=== PATIENT | female | born 1965 | race Caucasian/White ===

== ENCOUNTER 2020-03-26 11:14 | Outpatient (REF) | payer MEDICARE, MEDICAID, SELFPAY ==
[2020-03-26 12:09] LABS: MANUAL DIFF FLAG NO
[2020-03-26 12:16] LABS: Basophils Percent Auto 0.4 % (0-2); Eosinophils Absolute Auto 0.1 X10*3/uL (0.0-0.4); Eosinophils Percent Auto 0.8 % (0-4); Hematocrit 44.5 % (37-47); Imm Gran Abs Auto 0.03 X10*3/uL (0.00-0.03); Imm Gran Pct Auto 0.3 % (0.0-0.4); Lymphocytes Absolute Auto 2.3 X10*3/uL (1.2-4.9); Lymphocytes Percent Auto 20.1 % (20-40); Mean Corpuscular HGB Conc 31.5 g/dl (31.0-35.0); Mean Corpuscular Hemoglobin 27.2 pg (27.0-33.0); Mean Corpuscular Volume 86.6 fL (80-98); Monocytes Absolute Auto 0.6 X10*3/uL (0.1-1.2); Monocytes Percent Auto 5.2 % (2-11); Neutrophils Absolute Auto 8.2 X10*3/uL (2.0-8.3); Neutrophils Percent Auto 73.2 % (45-73); Platelet Count 246 X10*3/uL (160-400); Red Blood Count 5.14 X10*6/uL (4.20-5.50); Red Cell Distribution Width 15.8 % (11.0-16.0); White Blood Count 11.2 X10*3/uL (4.8-10.8)
[2020-03-26 13:05] LABS: Erythrocyte Sedimentation Rate 20 MM/HR (0-20)
[2020-03-26 13:37] LABS: Alanine Aminotransferase 25 U/L (0-31); Albumin Level 4.3 g/dL (3.5-5.0); Alkaline Phosphatase 90 U/L (39-117); Anion Gap 12 (12-20); Aspartate Amino Transferase 23 U/L (5-31); Bilirubin Total 0.4 mg/dL (0.0-1.0); Blood Urea Nitrogen 12 mg/dL (9-16); C Reactive Protein 3.18 mg/dL (< or = 0.50); Calcium 9.5 mg/dL (8.4-10.2); Carbon Dioxide 27 mmol/L (22-29); Chloride 105 mmol/L (96-108); Estimated Glomerular Filt Rate > 60; Glucose Random 84 mg/dL (60-115); Potassium 4.4 mmol/l (3.3-5.1); Sodium 140 mmol/L (135-145); Total Protein 7.1 g/dL (6.5-8.0)
== END 2020-03-26 11:15 | disposition home or self-care (01) ==
LOC: HO.LAB 11:14
PROVIDERS: PCP Internal Medicine; Visit Provider Student in an Organized Health Care Education/Training Program
DX: M13.80 Other specified arthritis, unspecified site (principal); D72.829 Elevated white blood cell count, unspecified; R79.82 Elevated C-reactive protein (CRP)
CPT/HCPCS: 36415; 80053; 85025; 85652; 86140

== ENCOUNTER → 2020-04-01 15:08 | Outpatient (BNVA) | payer MEDICARE, MEDICAID, SELFPAY | PROVIDERS: PCP Internal Medicine; Visit Provider Student in an Organized Health Care Education/Training Program | DX: M06.00 Rheumatoid arthritis without rheumatoid factor, unspecified site (principal); R79.82 Elevated C-reactive protein (CRP); D72.829 Elevated white blood cell count, unspecified; Z79.899 Other long term (current) drug therapy | CPT/HCPCS: 99214 ==

== ENCOUNTER 2020-07-03 10:19 | Outpatient (REF) | payer MEDICARE, MEDICAID, SELFPAY ==
[2020-07-03 11:48] LABS: MANUAL DIFF FLAG NO
[2020-07-03 11:59] LABS: Basophils Absolute Auto 0.1 X10*3/uL (0.0-0.2); Basophils Percent Auto 0.5 % (0-2); Eosinophils Absolute Auto 0.1 X10*3/uL (0.0-0.4); Hematocrit 46.2 % (37-47); Hemoglobin 14.3 g/dl (12.0-16.0); Imm Gran Abs Auto 0.03 X10*3/uL (0.00-0.03); Imm Gran Pct Auto 0.3 % (0.0-0.4); Lymphocytes Absolute Auto 2.1 X10*3/uL (1.2-4.9); Lymphocytes Percent Auto 20.3 % (20-40); Mean Corpuscular Hemoglobin 27.3 pg (27.0-33.0); Mean Corpuscular Volume 88.3 fL (80-98); Monocytes Absolute Auto 0.6 X10*3/uL (0.1-1.2); Monocytes Percent Auto 5.7 % (2-11); Neutrophils Absolute Auto 7.4 X10*3/uL (2.0-8.3); Neutrophils Percent Auto 72.2 % (45-73); Platelet Count 223 X10*3/uL (160-400); Red Blood Count 5.23 X10*6/uL (4.20-5.50); Red Cell Distribution Width 14.8 % (11.0-16.0); White Blood Count 10.3 X10*3/uL (4.8-10.8)
[2020-07-03 12:25] LABS: Alanine Aminotransferase 15 U/L (0-31); Albumin Level 4.3 g/dL (3.5-5.0); Alkaline Phosphatase 97 U/L (39-117); Anion Gap 17 (12-20); Aspartate Amino Transferase 20 U/L (5-31); Bilirubin Total 0.5 mg/dL (0.0-1.0); Blood Urea Nitrogen 10 mg/dL (9-16); C Reactive Protein 3.54 mg/dL (< or = 0.50); Calcium 9.4 mg/dL (8.4-10.2); Carbon Dioxide 26 mmol/L (22-29); Chloride 105 mmol/L (96-108); Estimated Glomerular Filt Rate > 60; Glucose Random 75 mg/dL (60-115); Magnesium 2.1 mg/dL (1.6-2.6); Potassium 4.8 mmol/l (3.3-5.1); Sodium 143 mmol/L (135-145); Total Protein 7.3 g/dL (6.5-8.0)
[2020-07-03 12:57] LABS: Erythrocyte Sedimentation Rate 22 MM/HR (0-20)
== END 2020-07-03 10:20 | disposition home or self-care (01) ==
LOC: HO.LAB 10:19
PROVIDERS: PCP Internal Medicine; Visit Provider Student in an Organized Health Care Education/Training Program
DX: M13.80 Other specified arthritis, unspecified site (principal); D72.829 Elevated white blood cell count, unspecified
CPT/HCPCS: 36415; 80053; 83735; 85025; 85652; 86140

== ENCOUNTER → 2020-07-08 08:05 | Outpatient (BNVA) | payer MEDICARE, MEDICAID, SELFPAY | PROVIDERS: PCP Internal Medicine; Visit Provider Student in an Organized Health Care Education/Training Program | DX: Z13.89 Encounter for screening for other disorder (principal) | CPT/HCPCS: Q3014 ==

== ENCOUNTER 2020-10-14 10:19 | Outpatient (REF) | payer MEDICARE, MEDICAID, SELFPAY ==
[2020-10-14 11:16] LABS: MANUAL DIFF FLAG NO
[2020-10-14 11:34] LABS: Basophils Percent Auto 0.4 % (0-2); Eosinophils Absolute Auto 0.1 X10*3/uL (0.0-0.4); Eosinophils Percent Auto 1.2 % (0-4); Hematocrit 45.2 % (37-47); Imm Gran Abs Auto 0.06 X10*3/uL (0.00-0.03); Imm Gran Pct Auto 0.6 % (0.0-0.4); Lymphocytes Absolute Auto 2.2 X10*3/uL (1.2-4.9); Mean Corpuscular Hemoglobin 26.8 pg (27.0-33.0); Mean Corpuscular Volume 86.6 fL (80-98); Mean Platelet Volume 12.5 fL (9.4-12.3); Monocytes Absolute Auto 0.6 X10*3/uL (0.1-1.2); Monocytes Percent Auto 5.8 % (2-11); Neutrophils Absolute Auto 7.1 X10*3/uL (2.0-8.3); Platelet Count 208 X10*3/uL (160-400); Red Blood Count 5.22 X10*6/uL (4.20-5.50); Red Cell Distribution Width 14.3 % (11.0-16.0); White Blood Count 10.1 X10*3/uL (4.8-10.8)
[2020-10-14 11:51] LABS: Alanine Aminotransferase 15 U/L (0-31); Albumin Level 4.1 g/dL (3.5-5.0); Alkaline Phosphatase 90 U/L (39-117); Anion Gap 14 (12-20); Aspartate Amino Transferase 19 U/L (5-31); Bilirubin Total 0.6 mg/dL (0.0-1.0); Blood Urea Nitrogen 13 mg/dL (9-16); C Reactive Protein 2.42 mg/dL (< or = 0.50); Calcium 9.6 mg/dL (8.4-10.2); Carbon Dioxide 27 mmol/L (22-29); Chloride 105 mmol/L (96-108); Estimated Glomerular Filt Rate > 60; Glucose Random 82 mg/dL (60-115); Potassium 4.5 mmol/L (3.3-5.1); Sodium 141 mmol/L (135-145); Total Protein 7.1 g/dL (6.5-8.0)
[2020-10-14 12:10] LABS: Erythrocyte Sedimentation Rate 17 MM/HR (0-20)
[2020-10-14 12:22] LABS: Cholesterol 173 mg/dL; HDL Cholesterol 47 mg/dL; LDL Cholesterol Calculated 95 mg/dl; Triglycerides 156 mg/dL
[2020-10-14 12:35] LABS: TSH reflex Free T4 1.23 uIU/mL (0.32-4.0)
[2020-10-15 05:26] LABS: HBS Num1 0.39 mIU/mL (0-7.99); HBc Num1 0.05 S/CO (0.00-0.79); Hepatitis B Core Antibody Nonreactive (Nonreactive); ~HepC Num1 0.06 S/CO (0.00-0.79); ~Hepatitis B Surface Antibody NONREACTIVE (Nonreactive); ~Hepatitis C Antibody Nonreactive (Nonreactive)
[2020-10-15 05:40] LABS: HBsAGNum1 0.17 S/CO (0.00-0.99); Hepatitis B Surface Antigen Negative (Negative)
[2020-10-16 05:03] LABS: Hepatitis A Antibody IgM 0.16 Index (0-0.79); ~Hepatitis A Antibody IgM Nonreactive (Nonreactive)
[2020-10-16 20:36] LABS: TS Negative Control Passed; TS Panel A 1; TS Panel B 0; TS Positive Control Passed; TSpotTB Negative (SeeBelow)
== END 2020-10-14 10:20 | disposition home or self-care (01) ==
LOC: HO.LAB 10:19
PROVIDERS: PCP Internal Medicine; Visit Provider Student in an Organized Health Care Education/Training Program
DX: Z00.00 Encounter for general adult medical examination without abnormal findings (principal); M13.80 Other specified arthritis, unspecified site
CPT/HCPCS: 36415; 80053; 80061; 84443; 85025; 85652; 86140; 86481; 86704; 86706; 86709; 86803; 87340

== ENCOUNTER → 2020-10-22 08:01 | Outpatient (BNVA) | payer MEDICARE, MEDICAID, SELFPAY | PROVIDERS: Visit Provider Student in an Organized Health Care Education/Training Program | DX: M13.80 Other specified arthritis, unspecified site (principal); R79.82 Elevated C-reactive protein (CRP); D72.829 Elevated white blood cell count, unspecified; Z79.899 Other long term (current) drug therapy | CPT/HCPCS: 99212 ==

== ENCOUNTER 2021-06-07 07:53 | Outpatient (REF) | payer MEDICARE, MEDICAID, SELFPAY ==
[2021-06-07 11:43] LABS: MANUAL DIFF FLAG NO
[2021-06-07 11:55] LABS: Basophils Percent Auto 0.3 % (0-2); Eosinophils Absolute Auto 0.2 X10*3/uL (0.0-0.4); Eosinophils Percent Auto 1.4 % (0-4); Hemoglobin 13.9 g/dl (12.0-16.0); Imm Gran Abs Auto 0.05 X10*3/uL (0.00-0.03); Imm Gran Pct Auto 0.4 % (0.0-0.4); Lymphocytes Absolute Auto 2.3 X10*3/uL (1.2-4.9); Lymphocytes Percent Auto 19.8 % (20-40); Mean Corpuscular HGB Conc 30.9 g/dl (31.0-35.0); Mean Corpuscular Hemoglobin 26.9 pg (27.0-33.0); Mean Corpuscular Volume 87.2 fL (80.0-98.0); Monocytes Absolute Auto 0.7 X10*3/uL (0.1-1.2); Monocytes Percent Auto 6.4 % (2-11); Neutrophils Absolute Auto 8.3 x10*3/uL (2.0-8.3); Neutrophils Percent Auto 71.7 % (45-73); Platelet Count 209 X10*3/uL (160-400); Red Blood Count 5.16 X10*6/uL (4.20-5.50); Red Cell Distribution Width 15.4 % (11.0-16.0); White Blood Count 11.6 X10*3/uL (4.8-10.8)
== END 2021-06-07 07:54 | disposition home or self-care (01) ==
LOC: HO.HMGCLDS 07:53
PROVIDERS: PCP Internal Medicine; Visit Provider Internal Medicine
DX: Z00.00 Encounter for general adult medical examination without abnormal findings (principal)
CPT/HCPCS: 36415; 85025; 85027

== ENCOUNTER 2021-06-22 10:15 | Outpatient (REF) | payer MEDICARE, MEDICAID, SELFPAY ==
--- NOTE | ~2021-06-22 | MR_ITS ---
EXAMINATION: MR LUMBAR SPINE WITHOUT CONTRAST CLINICAL INFORMATION: Right leg radiculopathy and low back pain. COMPARISON: MRI dated 08/23/2019. TECHNIQUE: MRI of the lumbar spine was obtained using routine sequences without contrast. FINDINGS: VERTEBRAL BODIES AND PARASPINAL STRUCTURES: The marrow signal is within normal limits. Small endplate Schmorl's nodes again visible at multiple levels. There are mild anterior subluxations at the L3-L4 and L4-L5 level. The paraspinal soft tissues are unremarkable. Mild rightward curvature of the lumbar spine evident. The visualized bony pelvis appears normal. Sigmoid colonic diverticulosis partially seen. CONUS MEDULLARIS AND CAUDA EQUINA: Normal, terminating at the level of L1. No lower cord signal abnormality seen. The cauda equina nerve roots are normal. SPINAL LEVELS: L1-L2: No disc pathology, central canal stenosis, or foraminal narrowing. L2-L3: Mild disc bulge and facet arthropathy slightly encroaching upon the central canal. Broad-based right lateralized disc bulge/protrusion with mild encroachment contacting the extraforaminal right L2 nerve root, as on prior imaging. L3-L4: Diffuse disc bulge and moderate facet arthropathy with thickening of the ligamentum flavum resulting in slightly worsened zrnf-jq-mjbivkrp central canal stenosis with encroachment upon the left subarticular zone and mild mass effect upon the left L4 nerve root. Bulging disc result in mild bilateral foraminal encroachment. L4-L5: Anterior subluxation and zdbonukr-gm-bzdwok facet arthropathy with thickening of the ligamentum flavum contributing to gygi-sd-corbctek central canal stenosis and asymmetric narrowing of the left subarticular zone with mass effect upon the left L5 nerve root. Bulging disc with mild right foraminal encroachment. Left foraminal broad-based disc protrusion and underlying annular fissure with moderate encroachment, slightly worsened compared to prior imaging. The disc protrusion abuts the extraforaminal left L4 nerve root. L5-S1: Qbfr-xo-tlvizcji facet arthropathy, worse on the right side with a minimal annular bulge. No central canal stenosis. Mild right foraminal narrowing. Endplate spurring impresses upon the extraforaminal right L5 nerve root without change. MR/MR lumbar spine wo con IMPRESSION: Slight worsening of zhcy-za-qogatiqv central canal stenosis at the L3-L4 level with mild mass effect upon the left L4 nerve root in the subarticular zone. Ycig-yr-bjzlpywa central canal stenosis is relatively stable at the L4-L5 level with a mild anterolisthesis and cdplnhmw-ch-rahkhd facet arthropathy. Slight worsening of moderate left foraminal encroachment due to a broad-based left foraminal disc protrusion with an underlying annular fissure. Lateralized portion of the disc protrusion abuts the extraforaminal left L4 nerve root. Chronic compression of the left L5 nerve root in the narrowed left subarticular zone. Broad-based right lateral disc bulge/protrusion at L2-L3 continues to contact the extraforaminal right L2 nerve root. Endplate spurring chronically impresses upon the extraforaminal right L5 nerve root at the L5-S1 level.
== END 2021-06-22 10:16 | disposition home or self-care (01) ==
LOC: HO.MRI 10:15
PROVIDERS: PCP Internal Medicine; Visit Provider Internal Medicine
DX: M54.16 Radiculopathy, lumbar region (principal)
CPT/HCPCS: 72148

== ENCOUNTER 2022-06-30 07:25 | Outpatient (REF) | payer MEDICARE, MEDICAID, SELFPAY ==
[2022-06-30 11:21] LABS: MANUAL DIFF FLAG NO
[2022-06-30 11:38] LABS: Basophils Absolute Auto 0.1 X10*3/uL (0.0-0.2); Basophils Percent Auto 0.5 % (0-2); Eosinophils Absolute Auto 0.2 X10*3/uL (0.0-0.4); Eosinophils Percent Auto 1.5 % (0-4); Hematocrit 46.4 % (37.0-47.0); Hemoglobin 14.3 g/dl (12.0-16.0); Imm Gran Abs Auto 0.04 X10*3/uL (0.00-0.03); Imm Gran Pct Auto 0.4 % (0.0-0.4); Lymphocytes Absolute Auto 2.1 X10*3/uL (1.2-4.9); Lymphocytes Percent Auto 19.8 % (20-40); Mean Corpuscular HGB Conc 30.8 g/dl (31.0-35.0); Mean Corpuscular Hemoglobin 26.7 pg (27.0-33.0); Mean Corpuscular Volume 86.6 fL (80.0-98.0); Mean Platelet Volume 12.8 fL (9.4-12.3); Monocytes Absolute Auto 0.6 X10*3/uL (0.1-1.2); Neutrophils Absolute Auto 7.5 x10*3/uL (2.0-8.3); Neutrophils Percent Auto 71.8 % (45-73); Platelet Count 256 X10*3/uL (160-400); Red Blood Count 5.36 X10*6/uL (4.20-5.50); Red Cell Distribution Width 14.5 % (11.0-16.0); White Blood Count 10.5 X10*3/uL (4.8-10.8)
[2022-06-30 12:16] LABS: Alanine Aminotransferase 13 U/L (0-31); Albumin Level 4.2 g/dL (3.5-5.0); Alkaline Phosphatase 81 U/L (39-117); Anion Gap 14 (12-20); Aspartate Amino Transferase 18 U/L (5-31); Bilirubin Total 0.5 mg/dL (0.0-1.0); Blood Urea Nitrogen 17 mg/dL (9-16); Calcium 9.3 mg/dL (8.4-10.2); Carbon Dioxide 25 mmol/L (22-29); Chloride 106 mmol/L (96-108); Cholesterol 185 mg/dL; Estimated Glomerular Filt Rate > 60; Glucose Fasting 87 mg/dL (60-99); HDL Cholesterol 52 mg/dL; LDL Cholesterol Calculated 114 mg/dl; Potassium 4.2 mmol/L (3.3-5.1); Sodium 141 mmol/L (135-145); Total Protein 7.3 g/dL (6.5-8.0); Triglycerides 95 mg/dL
[2022-06-30 12:18] LABS: TSH reflex Free T4 2.09 uIU/mL (0.32-4.0)
== END 2022-06-30 07:26 | disposition home or self-care (01) ==
LOC: HO.HMGCLDS 07:25
PROVIDERS: PCP Internal Medicine; Visit Provider Internal Medicine
DX: Z00.00 Encounter for general adult medical examination without abnormal findings (principal); E66.3 Overweight
CPT/HCPCS: 36415; 80053; 80061; 84443; 85025

== ENCOUNTER 2022-10-05 10:43 | Outpatient (REF) | payer MEDICARE, MEDICAID, SELFPAY ==
[2022-10-05 11:43] LABS: MANUAL DIFF FLAG NO
[2022-10-05 11:50] LABS: Basophils Absolute Auto 0.1 X10*3/uL (0.0-0.2); Basophils Percent Auto 0.6 % (0-2); Eosinophils Absolute Auto 0.1 X10*3/uL (0.0-0.4); Eosinophils Percent Auto 0.6 % (0-4); Hematocrit 45.7 % (37.0-47.0); Hemoglobin 14.2 g/dl (12.0-16.0); Imm Gran Abs Auto 0.03 X10*3/uL (0.00-0.03); Imm Gran Pct Auto 0.3 % (0.0-0.4); Lymphocytes Percent Auto 19.4 % (20-40); Mean Corpuscular HGB Conc 31.1 g/dl (31.0-35.0); Mean Corpuscular Hemoglobin 26.5 pg (27.0-33.0); Mean Corpuscular Volume 85.4 fL (80.0-98.0); Mean Platelet Volume 12.2 fL (9.4-12.3); Monocytes Absolute Auto 0.6 X10*3/uL (0.1-1.2); Monocytes Percent Auto 5.6 % (2-11); Neutrophils Absolute Auto 7.7 x10*3/uL (2.0-8.3); Neutrophils Percent Auto 73.5 % (45-73); Platelet Count 246 X10*3/uL (160-400); Red Blood Count 5.35 X10*6/uL (4.20-5.50); Red Cell Distribution Width 14.7 % (11.0-16.0); White Blood Count 10.4 X10*3/uL (4.8-10.8)
[2022-10-05 12:10] LABS: C Reactive Protein 2.88 mg/dL (< or = 0.50)
[2022-10-05 12:52] LABS: Erythrocyte Sedimentation Rate 33 MM/HR (0-20)
== END 2022-10-05 10:44 | disposition home or self-care (01) ==
LOC: HO.HMGCLDS 10:43
PROVIDERS: PCP Internal Medicine; Visit Provider Internal Medicine
DX: M48.062 Spinal stenosis, lumbar region with neurogenic claudication (principal)
CPT/HCPCS: 36415; 85025; 85652; 86140

== ENCOUNTER → 2022-10-26 14:40 | Outpatient (BNVA) | payer MEDICARE, MEDICAID, SELFPAY | PROVIDERS: PCP Internal Medicine; Visit Provider Student in an Organized Health Care Education/Training Program | DX: M13.80 Other specified arthritis, unspecified site (principal) | CPT/HCPCS: 99212 ==

== ENCOUNTER 2022-11-01 09:11 | Outpatient (REF) | payer MEDICARE, MEDICAID, SELFPAY ==
--- NOTE | ~2022-11-01 | XR_ITS ---
EXAMINATION: Bilateral hand and wrist x-ray CLINICAL INFORMATION: Pain COMPARISON: None. TECHNIQUE: 4 views of both hands and wrists FINDINGS: Right: Bone alignment is normal. No fracture or dislocation. Mild arthritis at the first NURSING HOME joint with joint space narrowing and osteophyte formation. Joint spaces are otherwise normal. Soft tissues are normal. Left: Bone alignment is normal. No fracture or dislocation. Mild arthritis at the first NURSING HOME joint with joint space narrowing and osteophyte formation. Joint spaces are otherwise normal. Soft tissues are normal. XR/XR hand wrist RT IMPRESSION: Bilateral osteoarthritis at the first NURSING HOME joints.
--- NOTE | ~2022-11-01 | XR_ITS ---
EXAMINATION: Bilateral knee x-ray CLINICAL INFORMATION: Arthritis. Pain. COMPARISON: None. TECHNIQUE: 4 views of each knee FINDINGS: Right: Bone alignment is normal. No fracture or dislocation. Mild arthritis at the medial femoral tibial and patellofemoral joints. Small osteophyte at the quadriceps tendon insertion to the patella. Moderate joint effusion. Left: Bone alignment is normal. No fracture or dislocation. Mild arthritis at the medial femoral tibial and patellofemoral joints. Small osteophyte at the quadriceps tendon insertion to the patella. No joint effusion. XR/XR knee RT 3V IMPRESSION: Mild bilateral osteoarthritis. Right knee joint effusion.
--- NOTE | ~2022-11-01 | XR_ITS ---
EXAMINATION: Bilateral hand and wrist x-ray CLINICAL INFORMATION: Pain COMPARISON: None. TECHNIQUE: 4 views of both hands and wrists FINDINGS: Right: Bone alignment is normal. No fracture or dislocation. Mild arthritis at the first HALF-WAY joint with joint space narrowing and osteophyte formation. Joint spaces are otherwise normal. Soft tissues are normal. Left: Bone alignment is normal. No fracture or dislocation. Mild arthritis at the first HALF-WAY joint with joint space narrowing and osteophyte formation. Joint spaces are otherwise normal. Soft tissues are normal. XR/XR hand wrist LT IMPRESSION: Bilateral osteoarthritis at the first HALF-WAY joints.
--- NOTE | ~2022-11-01 | XR_ITS ---
EXAMINATION: Bilateral knee x-ray CLINICAL INFORMATION: Arthritis. Pain. COMPARISON: None. TECHNIQUE: 4 views of each knee FINDINGS: Right: Bone alignment is normal. No fracture or dislocation. Mild arthritis at the medial femoral tibial and patellofemoral joints. Small osteophyte at the quadriceps tendon insertion to the patella. Moderate joint effusion. Left: Bone alignment is normal. No fracture or dislocation. Mild arthritis at the medial femoral tibial and patellofemoral joints. Small osteophyte at the quadriceps tendon insertion to the patella. No joint effusion. XR/XR knee LT 3V IMPRESSION: Mild bilateral osteoarthritis. Right knee joint effusion.
--- NOTE | ~2022-11-01 | XR_ITS ---
EXAMINATION: Bilateral knee x-ray CLINICAL INFORMATION: Arthritis. Pain. COMPARISON: None. TECHNIQUE: 4 views of each knee FINDINGS: Right: Bone alignment is normal. No fracture or dislocation. Mild arthritis at the medial femoral tibial and patellofemoral joints. Small osteophyte at the quadriceps tendon insertion to the patella. Moderate joint effusion. Left: Bone alignment is normal. No fracture or dislocation. Mild arthritis at the medial femoral tibial and patellofemoral joints. Small osteophyte at the quadriceps tendon insertion to the patella. No joint effusion. XR/XR knee standing BI IMPRESSION: Mild bilateral osteoarthritis. Right knee joint effusion.
[2022-11-01 09:57] LABS: MANUAL DIFF FLAG NO
[2022-11-01 10:34] LABS: Basophils Absolute Auto 0.1 X10*3/uL (0.0-0.2); Basophils Percent Auto 0.5 % (0-2); Eosinophils Absolute Auto 0.1 X10*3/uL (0.0-0.4); Eosinophils Percent Auto 0.7 % (0-4); Hematocrit 45.3 % (37.0-47.0); Imm Gran Abs Auto 0.04 X10*3/uL (0.00-0.03); Imm Gran Pct Auto 0.3 % (0.0-0.4); Lymphocytes Absolute Auto 2.4 X10*3/uL (1.2-4.9); Lymphocytes Percent Auto 19.5 % (20-40); Mean Corpuscular HGB Conc 30.9 g/dl (31.0-35.0); Mean Corpuscular Hemoglobin 26.4 pg (27.0-33.0); Mean Corpuscular Volume 85.5 fL (80.0-98.0); Mean Platelet Volume 12.4 fL (9.4-12.3); Monocytes Absolute Auto 0.8 X10*3/uL (0.1-1.2); Monocytes Percent Auto 6.6 % (2-11); Neutrophils Absolute Auto 8.9 x10*3/uL (2.0-8.3); Neutrophils Percent Auto 72.4 % (45-73); Platelet Count 225 X10*3/uL (160-400); Red Cell Distribution Width 14.7 % (11.0-16.0); White Blood Count 12.3 X10*3/uL (4.8-10.8)
[2022-11-01 11:15] LABS: Erythrocyte Sedimentation Rate 21 MM/HR (0-20)
[2022-11-01 12:13] LABS: Alanine Aminotransferase 17 U/L (0-31); Albumin Level 4.2 g/dL (3.5-5.0); Alkaline Phosphatase 90 U/L (39-117); Anion Gap 12 (12-20); Aspartate Amino Transferase 19 U/L (5-31); Bilirubin Total 0.6 mg/dL (0.0-1.0); Blood Urea Nitrogen 12 mg/dL (9-16); C Reactive Protein 2.59 mg/dL (< or = 0.50); Calcium 9.6 mg/dL (8.4-10.2); Carbon Dioxide 28 mmol/L (22-29); Chloride 106 mmol/L (96-108); Estimated Glomerular Filt Rate > 60; Glucose Random 84 mg/dL (60-115); Potassium 4.6 mmol/L (3.3-5.1); Rheumatoid Factor < 13.0 IU/mL (<15.0); Sodium 141 mmol/L (135-145); Total Protein 7.1 g/dL (6.5-8.0); Uric Acid 5.5 mg/dL (2.4-5.7)
[2022-11-02 04:37] LABS: HBS Num1 0.46 mIU/mL (0-7.99); HBc Num1 0.08 S/CO (0.00-0.79); HBsAGNum1 0.24 S/CO (0.00-0.99); Hepatitis A Antibody IgM 0.13 Index (0-0.79); Hepatitis B Core Antibody Nonreactive (Nonreactive); Hepatitis B Surface Antigen Negative (Negative); ~Hepatitis A Antibody IgM Nonreactive (Nonreactive); ~Hepatitis B Surface Antibody NONREACTIVE (Nonreactive); ~Hepatitis C Antibody Nonreactive (Nonreactive)
[2022-11-03 15:49] LABS: IgA 295 mg/dL (47-310); IgG 1070 mg/dL (600-1640); IgM 122 mg/dL (50-300)
[2022-11-04 12:49] LABS: Prot Elec - Albumin 4.1 g/dL (3.8-4.8); Prot Elec - Alpha1 0.4 g/dL (0.2-0.3); Prot Elec - Alpha2 0.9 g/dL (0.5-0.9); Prot Elec - Beta 1 0.5 g/dL (0.4-0.6); Prot Elec - Beta 2 0.5 g/dL (0.2-0.5); Prot Elec - Total Protein 7.3 g/dL (6.1-8.1)
[2022-11-05 16:53] LABS: Cyclic Citrullinated Peptide <16 UNITS
[2022-11-07 15:19] LABS: TSpotTB Invalid (Negative)
== END 2022-11-01 09:12 | disposition home or self-care (01) ==
LOC: HO.XRAY 09:11
PROVIDERS: PCP Internal Medicine; Visit Provider Student in an Organized Health Care Education/Training Program
DX: M13.80 Other specified arthritis, unspecified site (principal); M25.561 Pain in right knee; Z11.7 Encounter for testing for latent tuberculosis infection; Z11.59 Encounter for screening for other viral diseases; Z72.89 Other problems related to lifestyle
CPT/HCPCS: 36415; 73110; 73130; 73562; 73564; 73565; 80053; 82784; 84165; 84550; 85025; 85652; 86140; 86200; 86334; 86431; 86481; 86704; 86706; 86709; 86803; 87340

== ENCOUNTER 2022-11-18 08:53 | Outpatient (REF) | payer MEDICARE, MEDICAID, SELFPAY ==
--- NOTE | ~2022-11-18 | MR_ITS ---
EXAMINATION: MR LUMBAR SPINE WITHOUT CONTRAST CLINICAL INFORMATION: Neurogenic claudication COMPARISON: MR lumbar spine 06/14/2021 TECHNIQUE: MRI of the lumbar spine was obtained using routine sequences without contrast. FINDINGS: Normal lumbar lordosis is preserved. Stable trace anterolisthesis at L4-L5. Vertebral body heights are maintained. There is no suspicious osseous lesion. Diffuse disc desiccation stable mild L4-L5 and L5-S1 disc height loss. Multilevel small endplate Schmorl's nodes again seen. Multilevel anterior osteophytic spurring .There are multilevel degenerative changes with level by level detail as follows: L1-L2: Mild bilateral facet arthrosis with ligamentum flavum thickening. No spinal canal or neural foraminal stenosis. L2-L3: Redemonstrated right eccentric disc bulge projecting into the right neural foramen with mild bilateral facet arthrosis and ligamentum flavum thickening. No spinal canal stenosis. Stable mild right neural foraminal stenosis and mass effect along the extraforaminal right L2 nerve root. No left neural foraminal stenosis. L3-L4: Annular disc bulge with advanced left greater than right facet arthrosis and ligamentum flavum thickening. Trace left facet joint effusion. Stable mild to moderate spinal canal stenosis and subarticular zone narrowing with abutment along the traversing left greater than right L4 nerve roots. Unchanged mild bilateral neural foraminal stenosis with contact along the extraforaminal right L3 nerve root. L4-L5: Redemonstrated advanced bilateral facet arthrosis with ligamentum flavum thickening, stable trace anterolisthesis with posterior disc uncovering/disc bulge, left foraminal annular fissure. Mild increased degenerative edema associated with the left facet joint associated joint effusion. Unchanged mild spinal canal stenosis and bilateral subarticular zone narrowing with abutment along the traversing L5 nerve roots. Unchanged mild bilateral neural foraminal stenosis. L5-S1: Annular disc bulge with far right lateral disc osteophyte and mild bilateral facet arthrosis. No spinal canal stenosis, noting prominent along the right S1 nerve root in the subarticular zone. Stable mild right greater than left neural foraminal stenosis with far lateral disc osteophyte impinging upon the extraforaminal right L5 nerve root. The conus medullaris terminates at the level of L1. The distal spinal cord is normal in appearance. . No epidural fluid collection, hematoma, or mass. There is mild fatty atrophy of the paraspinal musculature. Colonic diverticulosis. The abdominal aorta is of normal contour and caliber. MR/MR lumbar spine wo con IMPRESSION: 1. Multilevel degenerative changes of the lumbar spine have not significantly progressed compared to MRI from 06/14/2021. 2. At L2-L3, stable mild right neural foraminal stenosis and mass effect along the extraforaminal right L2 nerve root. 3. At L3-L4, stable mild to moderate spinal canal stenosis and subarticular zone narrowing with abutment along the traversing L4 nerve roots. Unchanged mild bilateral neural foraminal stenosis with contact along the extraforaminal right L3 nerve root. 4. At L4-L5, stable trace anterolisthesis related to advanced facet arthrosis with mild spinal canal stenosis and mild bilateral neural foraminal stenosis. Mild increased degenerative edema associated with the left facet joint associated joint effusion. 5. At L5-S1, stable mild right greater than left neural foraminal stenosis with far right lateral disc osteophyte impinging upon the extraforaminal right L5 nerve root.
== END 2022-11-18 08:54 | disposition home or self-care (01) ==
LOC: HO.MRI 08:53
PROVIDERS: PCP Internal Medicine; Visit Provider Internal Medicine
DX: M48.062 Spinal stenosis, lumbar region with neurogenic claudication (principal)
CPT/HCPCS: 72148

== ENCOUNTER 2023-03-07 08:02 | Outpatient (AMB) | payer MEDICARE, MEDICAID, SELFPAY ==
--- NOTE | 2023-03-07 08:09 | MHC.OFFVIS ---
Intake Vital Signs 03/07/23 08:15 Height 5 ft 1 in Weight 226 lb 10.163 oz BMI 42.8 BP 124/72 Blood Pressure Location Rt brachial Position Sitting Pulse 87 Pulse Source Pulse Oximeter Temp 97.2 F Temp Source Skin Pulse Oximetry (%) 99 Intake Visit Reasons: RA/OA Intake Note: Pt seen today for RA follow up and test results. C/o increased pain and cramping in hands and feet. 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 Accompanied by: Self / Same As Patient Allergies loratadine [From CLARITIN-D] Allergy (Severe, Verified 03/07/23 08:21) DIFFICULTY BREATHING meperidine [From DEMEROL] Allergy (Severe, Verified 03/07/23 08:21) DIFFICULTY BREATHING pseudoephedrine [From CLARITIN-D] Allergy (Severe, Verified 03/07/23 08:21) DIFFICULTY BREATHING acetaminophen [From VICODIN] Allergy (Unknown, Verified 03/07/23 08:21) UNKNOWN Medication List - Last Reconciled 03/07/23 by Soila Perkins MD ascorbic acid-elderberry fruit 100-50 mg (Airborne (elderberry)) tabs PO lqxxjqc-pmcgoetgwbotu-ustspqrh 250-250-65 mg (Excedrin Migraine) 1 tab PO Q4-6H PRN folic acid 1 mg PO DAILY magnesium glycinate PO multivitamin 1 tab PO DAILY triamcinolone acetonide 0.025% 1 appl topical DAILY PRN HPI HPI Comments History of Present Illness Details Patient returns for follow-up after completion of her diagnostic workup. Continues to feel about the same. Initial history: This is a 57-year-old female who was diagnosed with seronegative arthritis back in 2017. Used to follow-up with Dr. Patel then followed with Dr. Velez. She took methotrexate consistently for 3 years. She continued to have pain and increase inflammatory markers. Biologics where suggested as well as triple therapy and patient refused. She has not been seen by senior clinical data analyst since 2020. Over the last year patient has been having worsening pain. She has worsening bilateral lower back pain worse on the right side. She has severe pain of her legs. Mostly her knees. She was evaluated by you and then spine not sports for her lower back pain and she had 2 rounds of physical therapy which did not provide much benefit. [facility] Medical History (Updated 03/07/23 @ 12:42 by Soila Perkins MD) Normal pelvic exam Lumbar radicular pain Colonoscopy refused Mammogram normal Annual physical exam Rheumatoid arthritis PTSD (post-traumatic stress disorder) Depression with anxiety Overweight Chronic vertigo Migraine Surgical History H/O dilation and curettage H/O arthroscopy History of carpal tunnel release No pertinent past surgical history Family History Father Smoker Myocardial infarction Mother HTN (hypertension) History of CVA (cerebrovascular accident) Brother Myocardial infarction Brother No problems noted. Sister No problems noted. Sister No problems noted. Social History Housing: Apartment Alcohol intake: never Patient Tobacco Use Status: Never used Tobacco e-Cigarette/Vaping Use: Never Used Current occupational status: disabled Cognitive needs: No Hearing needs: No Vision needs: Yes Review of Systems Const Reports fatigue and Reports weakness Musc Reports back pain, Reports arthralgias, Reports joint swelling, Reports limited range of motion and Reports stiffness Skin/Breast Reports unusual bruising Neuro Reports weakness Psych Reports anxiety Endo Reports fatigue Physical Exam Vital Signs: Last Vital Signs Temp 97.2 F 03/07/23 08:15 Pulse 87 03/07/23 08:15 BP 124/72 03/07/23 08:15 Pulse Ox 99 03/07/23 08:15 BMI result Body Mass Index 42.8 Const General: cooperative, healthy appearing and comfortable Nutritional Appearance: obese morbidly obese Orientation/consciousness: patient oriented x3 Limitations: no limitations HEENT Head: Yes normocephalic and Yes atraumatic Mouth: moist mucous membranes Resp Effort & Inspection: normal respiratory effort and able to speak in complete sentences Neuro General: patient oriented x3 Extrem Other: Tender right wrist without swelling, no pain with flexion and extension of wrists bilaterally. Negative MCP squeeze test Good desk director strength bilaterally Bilateral Knee pain with flexion and extension . No swelling or warmth today No ankle swelling or tenderness No MTP tenderness Negative MTP squeeze test Results Reviewed Results Reviewed: EXAMINATION: MRI OF THE RIGHT HAND WITH AND WITHOUT CONTRAST 03/2019 CLINICAL INFORMATION: Seronegative arthritis. COMPARISON: None FINDINGS: Bone marrow signal is normal. Alignment is anatomic. Intercarpal ligaments at the wrist appear intact. The triangular fibrocartilage complex is normal. Small marginal osteophytes are evident at the radiocarpal joint. No significant subchondral marrow abnormalities. No erosions are identified. No significant joint effusions. Trace amount of fluid within a few of the joints including the MCP, joints is within normal limits. There is mild generalized synovial enhancement at the distal radial ulnar, carpal, MCP, and interphalangeal joints, which is within normal limits. No significant synovitis. No periostitis. There is a small focus of fluid signal intensity within the flexor tendons of the long finger at the level of the metacarpal neck, PAGE 1 Signed Report (CONTINUED) Name: LIANNE BOSWELL Address: [address] [place], [place] [id number] : 1965 Age: 53 Doctor: HARI PATEL MD Location: MRI Exam Date: 04/17/2019 Time: 1051 favored to be within normal limits. There is no significant tenosynovial enhancement in this region to indicate tenosynovitis. The carpal tunnel is unremarkable. No findings of a decompression are apparent. The flexor retinaculum appears intact. Guyon's canal is unremarkable. IMPRESSION: Minimal radiocarpal osteoarthritis, characterized by small marginal osteophytes. Mild synovial enhancement in the MCP joints and throughout the carpus is favored to be within normal limits. No erosions, tenosynovitis, enthesitis, or other convincing findings to correlate with the history of a seronegative arthritis. Right hand MRI 08/2017 There is focal edema tracking within and along the flexor tendon, consistent with synovitis.? No intrinsic disruption of or abnormal signal intensity within the underlying tendon is seen.? Minimal edema is seen along the 2nd, 4th and 5th flexor tendons, also without intrinsic tendon abnormality.?? Minimal edema is also seen within the 2nd extensor compartment, suggesting synovitis? No apparent mass or discrete abnormal fluid collection.?? Minimal degenerative changes are noted, mostly across the carpal bones.? No fracture or subluxation Impression: Findings consistent with 3rd flexor tendon synovitis.?? Other minimal findings suggestive flexor and extensor synovitis Assessment & Plan Assessment & Plan (1) Seronegative arthritis: Code(s): M13.80 - Other specified arthritis, unspecified site Plan: This is a 57-year-old female with seronegative RA who presents for evaluation of arthritis. Patient was diagnosed with seronegative RA back in 2018 and was on methotrexate for 3 years without much improvement per patient. She had persistently elevated inflammatory markers. Biologic treatment was suggested as well as triple therapy and patient refused treatment. She has not been on DMARD since 2020. Right hand MRI in 2018 and 2019 suggestive of inflammatory arthritis. Patient also has multiple tender points suggestive of fibromyalgia. Today we had a long discussion regarding the differences between osteoarthritis, rheumatoid arthritis and fibromyalgia. Patient has multiple concerns about multiple DMARDs. Advised patient to read up on low-dose methotrexate, leflunomide and hydroxychloroquine and we will discuss further next visit in 2 months (2) Fibromyalgia, primary: Code(s): M79.7 - Fibromyalgia Plan: Discussed management of fibromyalgia with patient. Is a noninflammatory, non-autoimmune central afferent processing disorder leading to a diffuse pain syndrome. Patient has a therapist, I suggested evaluation by a psychiatrist. Try to follow sleep hygiene practices. Discuss CBT for sleep with psychotherapist. Patient would benefit from increased physical activity, either through formal physical therapy or by joining a gym. Advised patient that she should start activity slowly and increase as tolerated. Consider low-impact exercises such as walking, swimming, aqua therapy stretching, yoga. Plan I spent 30 minutes reviewing patient's chart, evaluating patient, counseling patient and documenting in the chart Coding Level of Care Code Est Pt Level 4 (87744) Diagnoses Seronegative arthritis M13.80 Fibromyalgia, primary M79.7
[2023-03-07 08:15] VITALS: BP 124/72; PULSE 87; TEMP 36.2; O2SAT 99; BMI 42.8
== END 2023-03-07 08:58 | disposition home or self-care (01) ==
PROVIDERS: PCP Internal Medicine; Visit Provider Student in an Organized Health Care Education/Training Program
DX: M13.80 Other specified arthritis, unspecified site (principal); M79.7 Fibromyalgia
CPT/HCPCS: 99214

== ENCOUNTER → 2023-03-07 08:02 | Outpatient (BNVA) | payer MEDICARE, MEDICAID, SELFPAY | PROVIDERS: PCP Internal Medicine; Visit Provider Student in an Organized Health Care Education/Training Program | DX: M13.80 Other specified arthritis, unspecified site (principal); M79.7 Fibromyalgia | CPT/HCPCS: 99212 ==

== ENCOUNTER 2023-06-15 07:28 | Outpatient (REF) | payer MEDICARE, MEDICAID, SELFPAY ==
[2023-06-15 11:33] LABS: MANUAL DIFF FLAG NO
[2023-06-15 12:03] LABS: Basophils Absolute Auto 0.1 X10*3/uL (0.0-0.2); Basophils Percent Auto 0.6 % (0-2); Eosinophils Absolute Auto 0.1 X10*3/uL (0.0-0.4); Eosinophils Percent Auto 0.8 % (0-4); Hematocrit 45.9 % (37.0-47.0); Hemoglobin 14.2 g/dl (12.0-16.0); Imm Gran Abs Auto 0.03 X10*3/uL (0.00-0.03); Imm Gran Pct Auto 0.3 % (0.0-0.4); Lymphocytes Absolute Auto 2.1 X10*3/uL (1.2-4.9); Lymphocytes Percent Auto 21.4 % (20-40); Mean Corpuscular HGB Conc 30.9 g/dl (31.0-35.0); Mean Corpuscular Hemoglobin 26.4 pg (27.0-33.0); Mean Corpuscular Volume 85.3 fL (80.0-98.0); Mean Platelet Volume 11.9 fL (9.4-12.3); Monocytes Absolute Auto 0.6 X10*3/uL (0.1-1.2); Monocytes Percent Auto 6.1 % (2-11); Neutrophils Absolute Auto 6.9 x10*3/uL (2.0-8.3); Neutrophils Percent Auto 70.8 % (45-73); Platelet Count 221 X10*3/uL (160-400); Red Blood Count 5.38 X10*6/uL (4.20-5.50); White Blood Count 9.7 X10*3/uL (4.8-10.8)
[2023-06-15 12:39] LABS: Alanine Aminotransferase 19 U/L (0-31); Albumin Level 4.2 g/dL (3.5-5.0); Alkaline Phosphatase 80 U/L (39-117); Anion Gap 14 (12-20); Aspartate Amino Transferase 26 U/L (5-31); Bilirubin Total 0.5 mg/dL (0.0-1.0); Blood Urea Nitrogen 10 mg/dL (9-16); Calcium 9.4 mg/dL (8.4-10.2); Carbon Dioxide 24 mmol/L (22-29); Chloride 107 mmol/L (96-108); Cholesterol 167 mg/dL (<200); Estimated Glomerular Filt Rate > 60; Glucose Fasting 92 mg/dL (60-99); HDL Cholesterol 55 mg/dL (>40); LDL Cholesterol Calculated 94 mg/dL (<100); Potassium 3.7 mmol/L (3.3-5.1); Sodium 141 mmol/L (135-145); TSH reflex Free T4 1.21 uIU/mL (0.32-4.0); Total Protein 7.4 g/dL (6.5-8.0); Triglycerides 93 mg/dL (<150); Vitamin D 25-OH Total 66.6 ng/mL (>30)
[2023-06-18 15:53] LABS: TSpotTB Invalid (Negative)
== END 2023-06-15 07:29 | disposition home or self-care (01) ==
LOC: HO.HMGCLDS 07:28
PROVIDERS: Absent Provider Student in an Organized Health Care Education/Training Program; PCP Internal Medicine; Visit Provider Internal Medicine
DX: Z00.00 Encounter for general adult medical examination without abnormal findings (principal); Z11.7 Encounter for testing for latent tuberculosis infection; E55.9 Vitamin D deficiency, unspecified
CPT/HCPCS: 36415; 80053; 80061; 82306; 84443; 85025; 86481

== ENCOUNTER 2023-06-16 10:28 | Outpatient (AMB) | payer MEDICARE, MEDICAID, SELFPAY ==
[2023-06-16 10:43] VITALS: BP 120/82; PULSE 90; O2SAT 97; BMI 43.1
--- NOTE | 2023-06-16 10:43 | A.OFFPC_ITS ---
Vital Signs 06/16/23 10:43 Height 5 ft 1 in Weight 228 lb BMI 43.1 BP 120/82 Blood Pressure Location Lt brachial Position Sitting Pulse 90 Pulse Source Pulse Oximeter Pulse Oximetry (%) 97 Oxygen Delivery Method Room Air Intake Visit Reasons: annual PE Allergies loratadine [From CLARITIN-D] Allergy (Severe, Verified 06/16/23 10:46) DIFFICULTY BREATHING meperidine [From DEMEROL] Allergy (Severe, Verified 06/16/23 10:46) DIFFICULTY BREATHING pseudoephedrine [From CLARITIN-D] Allergy (Severe, Verified 06/16/23 10:46) DIFFICULTY BREATHING acetaminophen [From VICODIN] Allergy (Unknown, Verified 06/16/23 10:46) UNKNOWN Medication List - Last Reconciled 06/16/23 by Venus Schaefer MD ascorbic acid-elderberry fruit 100-50 mg (Airborne (elderberry)) tabs PO tfujvjp-hjmnuapahbgjo-rcvdkuog 250-250-65 mg (Excedrin Migraine) 1 tab PO Q4-6H PRN folic acid 1 mg PO DAILY magnesium glycinate PO multivitamin 1 tab PO DAILY riboflavin (vitamin B2) 400 mg PO DAILY Tobacco use date assessed: 06/16/23 Dental Screening Dental Screen Date: 06/16/23 Did you have a dental visit in the last 12 months?: No Did you have a dental problem in the last 6 months where you did not have access to dental care?: No Was dental information given to patient?: No HPI annual PE HPI Details Pt presents for PE. Pt's partner was dxd with heart problem recently and she has been under lot of stress. Patient follows up with rheumatology for fibromyalgia and lumbar spine stenosis. COUNTS INCLUDE 234 BEDS AT THE [facility] Medical History (Updated 06/09/23 @ 15:34 by Venus Schaefer MD) Normal pelvic exam Lumbar radicular pain Colonoscopy refused Mammogram normal Annual physical exam Rheumatoid arthritis PTSD (post-traumatic stress disorder) Depression with anxiety Overweight Chronic vertigo Migraine Surgical History H/O dilation and curettage H/O arthroscopy History of carpal tunnel release No pertinent past surgical history Family History Father Smoker Myocardial infarction Mother HTN (hypertension) History of CVA (cerebrovascular accident) Brother Myocardial infarction Brother No problems noted. Sister No problems noted. Sister No problems noted. Social History Housing: Apartment Alcohol intake: never Patient Tobacco Use Status: Never used Tobacco e-Cigarette/Vaping Use: Never Used Current occupational status: disabled Cognitive needs: No Hearing needs: No Vision needs: Yes Questionnaire PHQ-9 Over the last 2 weeks, how often have you been bothered by any of the following problems? 1. Little interest or pleasure in doing things: several days 2. Feeling down, depressed, or hopeless: several days 3. Trouble falling or staying asleep, or sleeping too much: several days 4. Feeling tired or having little energy: nearly every day 5. Poor appetite or overeating: several days 6. Feeling bad about yourself - or that you are a failure or have let yourself or your family down: more than half the days 7. Trouble concentrating on things, such as reading the newspaper or watching television: more than half the days 8. Moving or speaking so slowly that other people could have noticed. Or the opposite - being so fidgety or restless that you have been moving around a lot more than usual: several days 9. Thoughts that you would be better off or of hurting yourself in some way: not at all Total score: 12 Depression Screening Interpretation: Negative Depression Screening Done: Yes 27865 - PHQ-9 Billing: Yes Source: Developed by Drs. Hesham Evans, Rox Mills, Yung Garcia and colleagues, with an educational fay from [employer]. Thrive Questionnaire Date Thrive assessed: 06/16/23 I am a: Patient What is your living situation today?: I have a steady place to live Within the past 12 months, did the food you bought not last and you didn't have the money to get more?: Never true Within the past 12 months, did you worry whether your food would run out before you got money to buy more?: Never true Do you have trouble paying for medicines?: No Do you have trouble getting transportation to medical appointments?: No Do you have trouble paying your heating and electricity bill?: No Do you have trouble taking care of your child, family member or friend?: No Do you have trouble with day-to-day activities such as bathing, preparing meals, shopping, managing finances, etc.?: No Are you currently unemployed and looking for a job?: No Are you interested in more education?: No Please select the resources that you would like help with: None Currently or been in a relationship where the following occur: no concerns reported AUDIT C Alcohol Use Questionnaire (AUDIT-C) 1. How often do you have a drink containing alcohol?: Never 3. How often do you have six or more drinks on one occasion?: Never Total Score: 0 Score Reviewed/Action Taken: Yes ADITI-7 AMB Questionnaire ADITI-7 Date ADITI - 7 assessed: 07/15/21 Feeling nervous, anxious, or on edge: 3 = Nearly every day Not being able to stop or control worryin = Nearly every day Worrying too much about different things: 3 = Nearly every day Trouble relaxin = Nearly every day Being so restless that it is hard to sit still: 1 = Several days Becoming easily annoyed or irritable: 1 = Several days Feeling afraid as if something awful might happen: 2 = More than half the days Total ADITI-7 score (0-4 normal; 5-9 mild; 10-14 moderate; 15-21 severe): 16 Source: Developed by Drs. Hesham Evans, Rox Mills, Yung Garcia and colleagues, with an educational fay from [employer]. ADITI-7 Assessment Billing ADITI-7 Assessment Tool: ADITI-7 Assessment 99757 Review of Systems Const All systems reviewed & are unremarkable except as noted in HPI and below Reports no additional complaints Eyes Reports no additional complaints ENT Reports no additional complaints Card Reports no additional complaints Resp Reports no additional complaints GI Reports no additional complaints Reports no additional complaints Musc Reports no additional complaints Physical exam (Primary Care) Vital Signs: Last Vital Signs Pulse 90 06/16/23 10:43 BP 140/86 H 06/16/23 10:43 Pulse Ox 97 06/16/23 10:43 Oxygen Delivery Method Room Air 06/16/23 10:43 BMI result Body Mass Index 43.1 Tobacco/Smoking Status: Tobacco use Status Tobacco use date assessed 06/16/23 06/16/23 10:48 Patient Tobacco Use Status Never used Tobacco 06/16/23 10:48 e-Cigarette/Vaping Use Never Used 06/16/23 10:48 Depression Screening Interpretation: Negative Thrive Assessment: Date of Thrive Assessment Date Thrive assessed 07/15/21 06/16/23 10:48 Currently or been in a relationship where the following occur: no concerns reported Const General: no acute distress HENMT Head: Yes normal to inspection General nose exam: Normal external nose present Face and sinus: Yes normal facial exam Mouth: Normal oral and palatal mucosa present Eyes General: appearance normal, both eyes and all related structures Neck Neck: Yes no lymphadenopathy and Yes supple Resp Effort & Inspection: normal respiratory effort Auscultation: clear to auscultation bilaterally Cardio Rhythm: regular rhythm Heart sounds: S1 normal heart sound present and S2 normal heart sound present GI Inspection: Yes normal to inspection Palpation (GI): Soft to palpation Percussion: Yes normal to percussion Auscultation: normal bowel sounds Assessment and Plan Assessment & Plan (1) Annual physical exam: Code(s): Z00.00 - Encounter for general adult medical examination without abnormal findings Plan: well balanced diet, regular exercise, weight loss, discussed. (2) Fibromyalgia, primary: Code(s): M79.7 - Fibromyalgia Plan: Follow-up with rheumatology (3) Lumbar stenosis with neurogenic claudication: Code(s): M48.062 - Spinal stenosis, lumbar region with neurogenic claudication Plan: Continue regular physical activity as tolerates (4) Seronegative arthritis: Code(s): M13.80 - Other specified arthritis, unspecified site Plan: Follow-up with Rheumatology (5) Vitamin D deficiency: Code(s): E55.9 - Vitamin D deficiency, unspecified Orders: Orders Comprehensive [place]. Panel Fast 365 Days E55.9 - Vitamin D deficiency, unspecified, Z00.00 - Encounter for general adult medical examination without abnormal findings Complete Blood Count Auto Diff 365 Days E55.9 - Vitamin D deficiency, unspecified, Z00.00 - Encounter for general adult medical examination without abnormal findings Lipid Panel 365 Days E55.9 - Vitamin D deficiency, unspecified, Z00.00 - Encounter for general adult medical examination without abnormal findings TSH reflex Free T4 365 Days E55.9 - Vitamin D deficiency, unspecified, Z00.00 - Encounter for general adult medical examination without abnormal findings Vitamin D 25-OH Total 365 Days E55.9 - Vitamin D deficiency, unspecified, Z00.00 - Encounter for general adult medical examination without abnormal findings Coding Level of Care Code Est Pt Prev Care 40-64y(75277) Diagnoses Annual physical exam Z00.00 Fibromyalgia, primary M79.7 Lumbar stenosis with neurogenic claudication M48.062 Seronegative arthritis M13.80 Vitamin D deficiency E55.9 Additional Codes ADITI-7 Assessment Billing - ADITI-7 Assessment Tool: ADITI-7 Assessment 50412 ([id number])
== END 2023-06-16 12:16 | disposition home or self-care (01) ==
PROVIDERS: Visit Provider Internal Medicine
DX: Z00.00 Encounter for general adult medical examination without abnormal findings (principal); M79.7 Fibromyalgia; M48.062 Spinal stenosis, lumbar region with neurogenic claudication; M13.80 Other specified arthritis, unspecified site; E55.9 Vitamin D deficiency, unspecified
CPT/HCPCS: 99396

== ENCOUNTER 2023-06-21 09:55 | Outpatient (AMB) | payer MEDICARE, MEDICAID, SELFPAY ==
[2023-06-21 09:57] VITALS: BP 136/86; PULSE 115; TEMP 36.1; O2SAT 97; BMI 42.7
--- NOTE | 2023-06-21 09:57 | MHC.OFFVIS ---
Intake Vital Signs 06/21/23 09:57 Height 5 ft 1 in Weight 225 lb 12.054 oz BMI 42.7 BP 136/86 Blood Pressure Location Rt brachial Position Sitting Pulse 115 H Pulse Source Pulse Oximeter Temp 97 F Temp Source Skin Pulse Oximetry (%) 97 Oxygen Delivery Method Room Air Intake Visit Reasons: RA Intake Note: Pt last seen 03/07/23 presents today for follow up. Would like to discuss tx options today. 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 Accompanied by: Self / Same As Patient Allergies loratadine [From CLARITIN-D] Allergy (Severe, Verified 06/21/23 09:57) DIFFICULTY BREATHING meperidine [From DEMEROL] Allergy (Severe, Verified 06/21/23 09:57) DIFFICULTY BREATHING pseudoephedrine [From CLARITIN-D] Allergy (Severe, Verified 06/21/23 09:57) DIFFICULTY BREATHING acetaminophen [From VICODIN] Allergy (Unknown, Verified 06/21/23 09:57) UNKNOWN Medication List - Last Reconciled 06/21/23 by Soila Perkins MD ascorbic acid-elderberry fruit 100-50 mg (Airborne (elderberry)) tabs PO kddrdhx-yssurbcxfyuab-vipnftst 250-250-65 mg (Excedrin Migraine) 1 tab PO Q4-6H PRN folic acid 1 mg PO DAILY magnesium glycinate PO multivitamin 1 tab PO DAILY riboflavin (vitamin B2) 400 mg PO DAILY HPI HPI Comments History of Present Illness Details 57-year-old female with seronegative arthritis returns for follow-up. She has been feeling about the same overall except for recently she has been having left knee pain and intermittent swelling. She is in the process of trying to find cognitive behavioral therapy specialist for fibromyalgia but has not been successful. She does have a therapist. She is willing to restart methotrexate Initial history: This is a 57-year-old female who was diagnosed with seronegative arthritis back in 2018. Used to follow-up with Dr. Patel then followed with Dr. Velez. She took methotrexate consistently for 3 years. She continued to have pain and increase inflammatory markers. Biologics where suggested as well as triple therapy and patient refused. 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 Over the last year patient has been having worsening pain. She has worsening bilateral lower back pain worse on the right side. She has severe pain of her legs. Mostly her knees. She was evaluated by you and then spine not sports for her lower back pain and she had 2 rounds of physical therapy which did not provide much benefit. [facility] Medical History Normal pelvic exam Lumbar radicular pain Colonoscopy refused Mammogram normal Annual physical exam Rheumatoid arthritis PTSD (post-traumatic stress disorder) Depression with anxiety Overweight Chronic vertigo Migraine Surgical History H/O dilation and curettage H/O arthroscopy History of carpal tunnel release No pertinent past surgical history Family History Father Smoker Myocardial infarction Mother HTN (hypertension) History of CVA (cerebrovascular accident) Brother Myocardial infarction Brother No problems noted. Sister No problems noted. Sister No problems noted. Social History Housing: Apartment Alcohol intake: never Patient Tobacco Use Status: Never used Tobacco e-Cigarette/Vaping Use: Never Used Current occupational status: disabled Cognitive needs: No Hearing needs: No Vision needs: Yes Review of Systems Const Reports fatigue Musc Reports back pain, Reports arthralgias, Reports joint swelling, Reports limited range of motion and Reports stiffness Psych Reports anxiety Endo Reports fatigue Physical Exam Vital Signs: Last Vital Signs Temp 97 F 06/21/23 09:57 Pulse 115 H 06/21/23 09:57 BP 136/86 06/21/23 09:57 Pulse Ox 97 06/21/23 09:57 Oxygen Delivery Method Room Air 06/21/23 09:57 BMI result Body Mass Index 42.7 Const General: cooperative, healthy appearing and comfortable Nutritional Appearance: obese morbidly obese Orientation/consciousness: patient oriented x3 Limitations: no limitations HEENT Head: Yes normocephalic and Yes atraumatic Mouth: moist mucous membranes Resp Effort & Inspection: normal respiratory effort and able to speak in complete sentences Neuro General: patient oriented x3 Extrem Other: No active synovitis both hands and wrists today 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 Minimal right knee warm No ankle swelling or tenderness No MTP tenderness Negative MTP squeeze test Results Reviewed Results Reviewed: EXAMINATION: MRI OF THE RIGHT HAND WITH AND WITHOUT CONTRAST 03/2019 CLINICAL INFORMATION: Seronegative arthritis. COMPARISON: None FINDINGS: Bone marrow signal is normal. Alignment is anatomic. Intercarpal ligaments at the wrist appear intact. The triangular fibrocartilage complex is normal. Small marginal osteophytes are evident at the radiocarpal joint. No significant subchondral marrow abnormalities. No erosions are identified. No significant joint effusions. Trace amount of fluid within a few of the joints including the MCP, joints is within normal limits. There is mild generalized synovial enhancement at the distal radial ulnar, carpal, MCP, and interphalangeal joints, which is within normal limits. No significant synovitis. No periostitis. There is a small focus of fluid signal intensity within the flexor tendons of the long finger at the level of the metacarpal neck, PAGE 1 Signed Report (CONTINUED) Name: LIANNE BOSWELL Address: [address] [place], [place] [id number] : 1965 Age: 53 Doctor: HARI PATEL MD Location: MRI Exam Date: 04/17/2019 Time: 1051 favored to be within normal limits. There is no significant tenosynovial enhancement in this region to indicate tenosynovitis. The carpal tunnel is unremarkable. No findings of a decompression are apparent. The flexor retinaculum appears intact. Guyon's canal is unremarkable. IMPRESSION: Minimal radiocarpal osteoarthritis, characterized by small marginal osteophytes. Mild synovial enhancement in the MCP joints and throughout the carpus is favored to be within normal limits. No erosions, tenosynovitis, enthesitis, or other convincing findings to correlate with the history of a seronegative arthritis. Right hand MRI 08/2017 There is focal edema tracking within and along the flexor tendon, consistent with synovitis.? No intrinsic disruption of or abnormal signal intensity within the underlying tendon is seen.? Minimal edema is seen along the 2nd, 4th and 5th flexor tendons, also without intrinsic tendon abnormality.?? Minimal edema is also seen within the 2nd extensor compartment, suggesting synovitis? No apparent mass or discrete abnormal fluid collection.?? Minimal degenerative changes are noted, mostly across the carpal bones.? No fracture or subluxation Impression: Findings consistent with 3rd flexor tendon synovitis.?? Other minimal findings suggestive flexor and extensor synovitis Assessment & Plan Assessment & Plan (1) Seronegative arthritis: Code(s): M13.80 - Other specified arthritis, unspecified site Plan: This is a 57-year-old female with seronegative RA who presents for evaluation of arthritis. Patient was diagnosed with seronegative RA back in 2018 and was on methotrexate for 3 years without much improvement per patient. She had persistently elevated inflammatory markers. Biologic treatment was suggested as well as triple therapy and patient refused treatment. She has not been on DMARD since 2020. Right hand MRI in 2018 and 2019 suggestive of inflammatory arthritis. Patient has multiple concerns about multiple DMARDs. Over the last few months, patient has been reading up on low-dose methotrexate, leflunomide and hydroxychloroquine. 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 Patient does not consume alcohol Plan I spent 24 minutes reviewing patient's chart, evaluating patient, ordering diagnostic workup, counseling patient and documenting in the chart Orders: Orders Complete Blood Count Auto Diff 2 Months Z79.899 - Other ocean transportation intermediary (current) drug therapy Comprehensive Met. 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
== END 2023-06-21 10:40 | disposition home or self-care (01) ==
PROVIDERS: PCP Internal Medicine; Visit Provider Student in an Organized Health Care Education/Training Program
DX: M13.80 Other specified arthritis, unspecified site (principal); Z79.899 Other long term (current) drug therapy
CPT/HCPCS: 99214

== ENCOUNTER → 2023-06-21 09:55 | Outpatient (BNVA) | payer MEDICARE, MEDICAID, SELFPAY | PROVIDERS: PCP Internal Medicine; Visit Provider Student in an Organized Health Care Education/Training Program | DX: M13.80 Other specified arthritis, unspecified site (principal); Z79.899 Other long term (current) drug therapy | CPT/HCPCS: 99212 ==

== ENCOUNTER 2023-08-23 11:20 | Outpatient (REF) | payer MEDICARE, MEDICAID, SELFPAY ==
[2023-08-23 11:33] LABS: MANUAL DIFF FLAG NO
[2023-08-23 11:53] LABS: Basophils Absolute Auto 0.1 X10*3/uL (0.0-0.2); Basophils Percent Auto 0.4 % (0-2); Eosinophils Absolute Auto 0.1 X10*3/uL (0.0-0.4); Eosinophils Percent Auto 0.6 % (0-4); Hematocrit 44.8 % (37.0-47.0); Hemoglobin 14.2 g/dl (12.0-16.0); Imm Gran Abs Auto 0.05 X10*3/uL (0.00-0.03); Imm Gran Pct Auto 0.4 % (0.0-0.4); Lymphocytes Absolute Auto 2.8 X10*3/uL (1.2-4.9); Lymphocytes Percent Auto 22.6 % (20-40); Mean Corpuscular HGB Conc 31.7 g/dl (31.0-35.0); Mean Corpuscular Volume 85.2 fL (80.0-98.0); Mean Platelet Volume 11.9 fL (9.4-12.3); Monocytes Absolute Auto 0.7 X10*3/uL (0.1-1.2); Neutrophils Absolute Auto 8.7 x10*3/uL (2.0-8.3); Platelet Count 207 X10*3/uL (160-400); Red Blood Count 5.26 X10*6/uL (4.20-5.50); Red Cell Distribution Width 14.8 % (11.0-16.0); White Blood Count 12.4 X10*3/uL (4.8-10.8)
[2023-08-23 12:31] LABS: Alanine Aminotransferase 15 U/L (0-31); Albumin Level 4.1 g/dL (3.5-5.0); Alkaline Phosphatase 95 U/L (39-117); Anion Gap 13 (12-20); Aspartate Amino Transferase 20 U/L (5-31); Bilirubin Total 0.4 mg/dL (0.0-1.0); Blood Urea Nitrogen 12 mg/dL (9-16); C Reactive Protein 3.03 mg/dL (< or = 0.50); Calcium 9.7 mg/dL (8.4-10.2); Carbon Dioxide 26 mmol/L (22-29); Chloride 104 mmol/L (96-108); Estimated Glomerular Filt Rate > 60; Glucose Random 73 mg/dL (60-115); Potassium 3.8 mmol/L (3.3-5.1); Sodium 139 mmol/L (135-145); Total Protein 7.7 g/dL (6.5-8.0)
[2023-08-23 12:35] LABS: Erythrocyte Sedimentation Rate 18 MM/HR (0-20)
== END 2023-08-23 11:21 | disposition home or self-care (01) ==
LOC: HO.LAB 11:20
PROVIDERS: PCP Internal Medicine; Visit Provider Student in an Organized Health Care Education/Training Program
DX: Z79.899 Other long term (current) drug therapy (principal)
CPT/HCPCS: 36415; 80053; 85025; 85652; 86140

== ENCOUNTER 2023-09-26 08:08 | Outpatient (AMB) | payer MEDICARE, MEDICAID, SELFPAY ==
--- NOTE | 2023-09-26 08:10 | A.OFFVIS_ITS ---
Intake Vital Signs 09/26/23 08:11 Height 5 ft 1 in Weight 220 lb 7.396 oz BMI 41.7 BP 116/70 Blood Pressure Location Rt brachial Position Sitting Pulse 88 Pulse Source Pulse Oximeter Pulse Oximetry (%) 98 Oxygen Delivery Method Room Air Intake Visit Reasons: RA/LVM Intake Note: Patient last seen 06/21/23 presents today for follow up and test results. Reports she never went up to 8 tabs of MTX. Last time she took MTX 6tabs was 2 weeks ago. 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 Accompanied by: Self / Same As Patient Allergies loratadine [From CLARITIN-D] Allergy (Severe, Verified 09/26/23 08:19) DIFFICULTY BREATHING meperidine [From DEMEROL] Allergy (Severe, Verified 09/26/23 08:19) DIFFICULTY BREATHING pseudoephedrine [From CLARITIN-D] Allergy (Severe, Verified 09/26/23 08:19) DIFFICULTY BREATHING acetaminophen [From VICODIN] Allergy (Unknown, Verified 09/26/23 08:19) UNKNOWN Medication List - Last Reconciled 09/26/23 by Soila Perkins MD ascorbic acid-elderberry fruit 100-50 mg (Airborne (elderberry)) tabs PO ijzarjf-tvddyjmxegfun-hwazwlbm 250-250-65 mg (Excedrin Migraine) 1 tab PO Q4-6H PRN folic acid 1 mg PO DAILY magnesium glycinate PO methotrexate sodium Take 6 tabs once weekly for 2 weeks then 8 tabs once weekly multivitamin 1 tab PO DAILY omeprazole 20 mg PO DAILY riboflavin (vitamin B2) 400 mg PO DAILY HPI HPI Comments History of Present Illness Details 58-year-old female with seronegative art hritis returns for follow-up. She has been taking methotrexate regularly since last visit. She has been taking 6 tabs weekly. Did not increase it to 8 tabs as prescribed. She ran out about 2 weeks ago. She states that she feels about the same. She continues to get intermittent cramping feeling in her hands and other joints. She states however that her knees feel better. She gets chest discomfort after taking methotrexate. Initial history: This is a 57-year-old female who was diagnosed with seronegative arthritis back in 2018. Used to follow-up with Dr. Patel then followed with Dr. Velez. She took methotrexate consistently for 3 years. She continued to have pain and increase inflammatory markers. Biologics where suggested as well as triple therapy and patient refused. She has not been seen by customs broker since 2020. Over the last year patient has been having worsening pain. She has worsening bilateral lower back pain worse on the right side. She has severe pain of her legs. Mostly her knees. She was evaluated by you and then spine not sports for her lower back pain and she had 2 rounds of physical therapy which did not provide much benefit. [facility] Medical History Normal pelvic exam Lumbar radicular pain Colonoscopy refused Mammogram normal Annual physical exam Rheumatoid arthritis PTSD (post-traumatic stress disorder) Depression with anxiety Overweight Chronic vertigo Migraine Surgical History H/O dilation and curettage H/O arthroscopy History of carpal tunnel release No pertinent past surgical history Family History Father Smoker Myocardial infarction Mother HTN (hypertension) History of CVA (cerebrovascular accident) Brother Myocardial infarction Brother No problems noted. Sister No problems noted. Sister No problems noted. Social History Housing: Apartment Alcohol intake: never Patient Tobacco Use Status: Never used Tobacco e-Cigarette/Vaping Use: Never Used Current occupational status: disabled Cognitive needs: No Hearing needs: No Vision needs: Yes Review of Systems Const Reports fatigue Musc Reports arthralgias, Reports limited range of motion and Reports stiffness Endo Reports fatigue Physical Exam Vital Signs: Last Vital Signs Pulse 88 09/26/23 08:11 BP 116/70 09/26/23 08:11 Pulse Ox 98 09/26/23 08:11 Oxygen Delivery Method Room Air 09/26/23 08:11 BMI result Body Mass Index 41.7 Const General: cooperative, healthy appearing and comfortable Nutritional Appearance: obese morbidly obese Orientation/consciousness: patient oriented x3 Limitations: no limitations HEENT Head: Yes normocephalic and Yes atraumatic Resp Effort & Inspection: normal respiratory effort and able to speak in complete sentences Auscultation: clear to auscultation bilaterally Cardio Rate: regular rate Rhythm: regular rhythm Skin General skin exam: no rashes or lesions noted Neuro General: patient oriented x3 Extrem Other: Right wrist pain with flexion and extension Right 3rd MCP mild swelling and tenderness Right 2nd PIP tenderness Left 3rd MCP mild swelling and tenderness Normal bilateral hand 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 No warmth or swelling No ankle swelling or tenderness No MTP tenderness Negative MTP squeeze test Results Reviewed Results Reviewed: EXAMINATION: MRI OF THE RIGHT HAND WITH AND WITHOUT CONTRAST 03/2019 CLINICAL INFORMATION: Seronegative arthritis. COMPARISON: None FINDINGS: Bone marrow signal is normal. Alignment is anatomic. Intercarpal ligaments at the wrist appear intact. The triangular fibrocartilage complex is normal. Small marginal osteophytes are evident at the radiocarpal joint. No significant subchondral marrow abnormalities. No erosions are identified. No significant joint effusions. Trace amount of fluid within a few of the joints including the MCP, joints is within normal limits. There is mild generalized synovial enhancement at the distal radial ulnar, carpal, MCP, and interphalangeal joints, which is within normal limits. No significant synovitis. No periostitis. There is a small focus of fluid signal intensity within the flexor tendons of the long finger at the level of the metacarpal neck, PAGE 1 Signed Report (CONTINUED) Name: LIANNE BOSWELL Address: [address] [place] [address] : 1965 Age: 53 Doctor: HARI PATEL MD Location: MRI Exam Date: 04/17/2019 Time: 1051 favored to be within normal limits. There is no significant tenosynovial enhancement in this region to indicate tenosynovitis. The carpal tunnel is unremarkable. No findings of a decompression are apparent. The flexor retinaculum appears intact. Guyon's canal is unremarkable. IMPRESSION: Minimal radiocarpal osteoarthritis, characterized by small marginal osteophytes. Mild synovial enhancement in the MCP joints and throughout the carpus is favored to be within normal limits. No erosions, tenosynovitis, enthesitis, or other convincing findings to correlate with the history of a seronegative arthritis. Right hand MRI 08/2017 There is focal edema tracking within and along the flexor tendon, consistent with synovitis.? No intrinsic disruption of or abnormal signal intensity within the underlying tendon is seen.? Minimal edema is seen along the 2nd, 4th and 5th flexor tendons, also without intrinsic tendon abnormality.?? Minimal edema is also seen within the 2nd extensor compartment, suggesting synovitis? No apparent mass or discrete abnormal fluid collection.?? Minimal degenerative changes are noted, mostly across the carpal bones.? No fracture or subluxation Impression: Findings consistent with 3rd flexor tendon synovitis.?? Other minimal findings suggestive flexor and extensor synovitis Assessment & Plan Assessment & Plan (1) Seronegative arthritis: Comment: -ve RF -ve CCP dx 2018 MTX [id number] (not much improvement per patient) MTX 05/2023 partially effective Code(s): M13.80 - Other specified arthritis, unspecified site Plan: This is a 58-year-old female with seronegative RA who presents for evaluation of arthritis. Patient was diagnosed with seronegative RA back in 2018 and was on methotrexate for 3 years without much improvement per patient. She had persistently elevated inflammatory markers. Biologic treatment was suggested as well as triple therapy and patient refused treatment. She has not been on DMARD since 2020. Right hand MRI in 2017 and 2018 suggestive of inflammatory arthritis. Patient has multiple concerns about multiple DMARDs. She was agreeable to restart methotrexate last visit. She only took 15 mg weekly, not 20 mg as prescribed. There is some symptomatic improvement. 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 Patient does not consume alcohol Plan I spent 24 minutes reviewing patient's chart, evaluating patient, ordering diagnostic workup, counseling patient and documenting in the chart Orders: Orders C Reactive Protein 3 Months M13.80 - Other specified arthritis, unspecified site T Spot TB 3 Months Z11.7 - Encounter for testing for latent tuberculosis infection Complete Blood Count Auto Diff 3 Months M13.80 - Other specified arthritis, unspecified site Comprehensive Met. Panel 3 Months M13.80 - Other specified arthritis, unspecified site Erythrocyte Sedimentation Rate 3 Months M13.80 - Other specified arthritis, unspecified site Medications: New dextromethorphan-guaifenesin 30-600 mg TAKE WITH METHOTREXATE 2 tabs PO QWEEK 8 tabs 2RF Changed From methotrexate sodium Take 6 tabs once weekly for 2 weeks then 8 tabs once weekly 64 tabs 0RF To methotrexate sodium Split dose into 4 tabs twice. 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
[2023-09-26 08:11] VITALS: BP 116/70; PULSE 88; O2SAT 98; BMI 41.7
== END 2023-09-26 08:43 | disposition home or self-care (01) ==
PROVIDERS: PCP Internal Medicine; Visit Provider Student in an Organized Health Care Education/Training Program
DX: M13.80 Other specified arthritis, unspecified site (principal); Z79.899 Other long term (current) drug therapy
CPT/HCPCS: 99214

== ENCOUNTER → 2023-09-26 08:08 | Outpatient (BNVA) | payer MEDICARE, MEDICAID, SELFPAY | PROVIDERS: PCP Internal Medicine; Visit Provider Student in an Organized Health Care Education/Training Program | DX: M13.80 Other specified arthritis, unspecified site (principal); Z79.899 Other long term (current) drug therapy | CPT/HCPCS: 99212 ==

== ENCOUNTER 2023-12-21 10:10 | Outpatient (REF) | payer MEDICARE, MEDICAID, SELFPAY ==
[2023-12-21 14:13] LABS: MANUAL DIFF FLAG NO
[2023-12-21 14:20] LABS: Basophils Absolute Auto 0.1 X10*3/uL (0.0-0.2); Basophils Percent Auto 0.8 % (0-2); Eosinophils Absolute Auto 0.1 X10*3/uL (0.0-0.4); Eosinophils Percent Auto 0.8 % (0-4); Hemoglobin 14.5 g/dl (12.0-16.0); Imm Gran Abs Auto 0.04 X10*3/uL (0.00-0.03); Imm Gran Pct Auto 0.4 % (0.0-0.4); Lymphocytes Absolute Auto 2.4 X10*3/uL (1.2-4.9); Lymphocytes Percent Auto 22.4 % (20-40); Mean Corpuscular HGB Conc 30.9 g/dl (31.0-35.0); Mean Corpuscular Hemoglobin 26.4 pg (27.0-33.0); Mean Corpuscular Volume 85.6 fL (80.0-98.0); Mean Platelet Volume 12.3 fL (9.4-12.3); Monocytes Absolute Auto 0.7 X10*3/uL (0.1-1.2); Monocytes Percent Auto 6.9 % (2-11); Neutrophils Absolute Auto 7.3 x10*3/uL (2.0-8.3); Neutrophils Percent Auto 68.7 % (45-73); Platelet Count 236 X10*3/uL (160-400); Red Blood Count 5.49 X10*6/uL (4.20-5.50); Red Cell Distribution Width 15.2 % (11.0-16.0); White Blood Count 10.5 X10*3/uL (4.8-10.8)
[2023-12-21 14:32] LABS: Alanine Aminotransferase 14 U/L (0-31); Albumin Level 4.2 g/dL (3.5-5.0); Alkaline Phosphatase 97 U/L (39-117); Anion Gap 14 (12-20); Aspartate Amino Transferase 20 U/L (5-31); Bilirubin Total 0.5 mg/dL (0.0-1.0); Blood Urea Nitrogen 9 mg/dL (9-16); C Reactive Protein 3.19 mg/dL (< or = 0.50); Calcium 9.9 mg/dL (8.4-10.2); Carbon Dioxide 25 mmol/L (22-29); Chloride 105 mmol/L (96-108); Estimated Glomerular Filt Rate > 60; Glucose Random 81 mg/dL (60-115); Potassium 4.4 mmol/L (3.3-5.1); Sodium 140 mmol/L (135-145); Total Protein 7.6 g/dL (6.5-8.0)
[2023-12-21 14:53] LABS: Erythrocyte Sedimentation Rate 23 MM/HR (0-20)
[2023-12-24 08:44] LABS: TS Negative Control Passed; TS Panel A 0; TS Panel B 1; TS Positive Control Passed; TSpotTB Negative (Negative)
== END 2023-12-21 10:11 | disposition home or self-care (01) ==
LOC: HO.HMGCLDS 10:10
PROVIDERS: PCP Internal Medicine; Visit Provider Student in an Organized Health Care Education/Training Program
DX: M13.80 Other specified arthritis, unspecified site (principal); Z11.7 Encounter for testing for latent tuberculosis infection
CPT/HCPCS: 36415; 80053; 85025; 85652; 86140; 86481

== ENCOUNTER 2023-12-26 08:15 | Outpatient (AMB) | payer MEDICARE, MEDICAID, SELFPAY ==
--- NOTE | 2023-12-26 08:16 | A.OFFVIS_ITS ---
Vital Signs 12/26/23 08:22 Height 5 ft 1 in Weight 221 lb 1.978 oz BMI 41.8 BP 118/80 Blood Pressure Location Rt brachial Position Sitting Pulse 90 Pulse Source Pulse Oximeter Pulse Oximetry (%) 99 Oxygen Delivery Method Room Air Intake Visit Reasons: RA/cm Intake Note: Patient presents for RA. Allergies loratadine [From CLARITIN-D] Allergy (Severe, Verified 12/26/23 08:21) DIFFICULTY BREATHING meperidine [From DEMEROL] Allergy (Severe, Verified 12/26/23 08:21) DIFFICULTY BREATHING pseudoephedrine [From CLARITIN-D] Allergy (Severe, Verified 12/26/23 08:21) DIFFICULTY BREATHING acetaminophen [From VICODIN] Allergy (Unknown, Verified 12/26/23 08:21) UNKNOWN Medication List - Last Reconciled 12/26/23 by Soila Perkins MD ascorbic acid-elderberry fruit 100-50 mg (Airborne (elderberry)) tabs PO qnhvqzs-cwecdshqhwlmi-bhcvuqbd 250-250-65 mg (Excedrin Migraine) 1 tab PO Q4-6H PRN dextromethorphan-guaifenesin 30-600 mg 2 tabs PO QWEEK fluocinonide 0.05% 1 appl topical BID-QID PRN folic acid 1 mg PO DAILY magnesium glycinate PO methotrexate sodium 20 mg (8 x 2.5 mg) PO QWEEK multivitamin 1 tab PO DAILY omeprazole 20 mg PO DAILY riboflavin (vitamin B2) 400 mg PO DAILY HPI Comments Details: 58-year-old female with seronegative arthritis returns for follow-up. She is taking methotrexate 20 mg weekly regularly plus folic acid 1 mg daily. The MTX flu-like symptoms are now tolerable. She does not split the methotrexate as prescribed. Her main concern today is taking omeprazole with methotrexate. Concern for interaction. I reassured her that she is being monitored for any methotrexate toxicity regularly and there has been no signs of MTX toxicity. 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 She was advised to continue with methotrexate. Initial history: This is a 57-year-old female who was diagnosed with seronegative arthritis back in 2018. Used to follow-up with Dr. Nura malagon with Dr. Velez. She took methotrexate consistently for 3 years. She continued to have pain and increase inflammatory markers. Biologics where suggested as well as triple therapy and patient refused. She has not been seen by rigger since 2020. Over the last year patient has been having worsening pain. She has worsening bilateral lower back pain worse on the right side. She has severe pain of her legs. Mostly her knees. She was evaluated by you and then spine not sports for her lower back pain and she had 2 rounds of physical therapy which did not provide much benefit. [facility] Medical History Frontal fibrosing alopecia Normal pelvic exam Lumbar radicular pain Colonoscopy refused Mammogram normal Annual physical exam Rheumatoid arthritis PTSD (post-traumatic stress disorder) Depression with anxiety Overweight Chronic vertigo Migraine Surgical History H/O dilation and curettage H/O arthroscopy History of carpal tunnel release No pertinent past surgical history Family History Father Smoker Myocardial infarction Mother HTN (hypertension) History of CVA (cerebrovascular accident) Brother Myocardial infarction Brother No problems noted. Sister No problems noted. Sister No problems noted. Social History Housing: Apartment Alcohol intake: never Patient Tobacco Use Status: Never used Tobacco e-Cigarette/Vaping Use: Never Used Current occupational status: disabled Cognitive needs: No Hearing needs: No Vision needs: Yes Review of Systems Musc Reports arthralgias, Reports limited range of motion and Reports stiffness Physical Exam Vital Signs: Last Vital Signs Pulse 90 12/26/23 08:22 BP 118/80 12/26/23 08:22 Pulse Ox 99 12/26/23 08:22 Oxygen Delivery Method Room Air 12/26/23 08:22 BMI result Body Mass Index 41.8 Const General: cooperative, healthy appearing and comfortable Nutritional Appearance: obese morbidly obese Orientation/consciousness: patient oriented x3 Limitations: no limitations HEENT Head: Yes normocephalic and Yes atraumatic Resp Effort & Inspection: normal respiratory effort and able to speak in complete sentences Auscultation: clear to auscultation bilaterally Cardio Rate: regular rate Rhythm: regular rhythm Skin General skin exam: no rashes or lesions noted Neuro General: patient oriented x3 Extrem Other: Right 3rd MCP thickening mild tenderness Multiple tender joints both hands but no swelling Multiple fibromyalgia tender points Bilateral knee crepitus, no no swelling or warmth or significant pain with flexion-extension. Normal gait No ankle swelling or tenderness No MTP tenderness Negative MTP squeeze test Results Reviewed Results Reviewed: EXAMINATION: MRI OF THE RIGHT HAND WITH AND WITHOUT CONTRAST 03/2019 CLINICAL INFORMATION: Seronegative arthritis. COMPARISON: None FINDINGS: Bone marrow signal is normal. Alignment is anatomic. Intercarpal ligaments at the wrist appear intact. The triangular fibrocartilage complex is normal. Small marginal osteophytes are evident at the radiocarpal joint. No significant subchondral marrow abnormalities. No erosions are identified. No significant joint effusions. Trace amount of fluid within a few of the joints including the MCP, joints is within normal limits. There is mild generalized synovial enhancement at the distal radial ulnar, carpal, MCP, and interphalangeal joints, which is within normal limits. No significant synovitis. No periostitis. There is a small focus of fluid signal intensity within the flexor tendons of the long finger at the level of the metacarpal neck, PAGE 1 Signed Report (CONTINUED) Name: LIANNE BOSWELL Address: [address] [place] [address] : 1965 Age: 53 Doctor: HARI PATEL MD Location: MRI Exam Date: 04/17/2019 Time: 1051 favored to be within normal limits. There is no significant tenosynovial enhancement in this region to indicate tenosynovitis. The carpal tunnel is unremarkable. No findings of a decompression are apparent. The flexor retinaculum appears intact. Guyon's canal is unremarkable. IMPRESSION: Minimal radiocarpal osteoarthritis, characterized by small marginal osteophytes. Mild synovial enhancement in the MCP joints and throughout the carpus is favored to be within normal limits. No erosions, tenosynovitis, enthesitis, or other convincing findings to correlate with the history of a seronegative arthritis. Right hand MRI 08/2017 There is focal edema tracking within and along the flexor tendon, consistent with synovitis.? No intrinsic disruption of or abnormal signal intensity within the underlying tendon is seen.? Minimal edema is seen along the 2nd, 4th and 5th flexor tendons, also without intrinsic tendon abnormality.?? Minimal edema is also seen within the 2nd extensor compartment, suggesting synovitis? No apparent mass or discrete abnormal fluid collection.?? Minimal degenerative changes are noted, mostly across the carpal bones.? No fracture or subluxation Impression: Findings consistent with 3rd flexor tendon synovitis.?? Other minimal findings suggestive flexor and extensor synovitis Assessment & Plan Assessment & Plan (1) Seronegative arthritis: Comment: -ve RF -ve CCP dx 2018 MTX [id number] (not much improvement per patient) MTX 05/2023 effective Code(s): M13.80 - Other specified arthritis, unspecified site Category: Medical Plan: This is a 58-year-old female with seronegative RA who presents for follow-up. On methotrexate 20 mg weekly plus folic acid 1 mg daily. Doing quite well overall. I do not see any swollen joints on exam. Reassured patient that she can keep taking omeprazole with methotrexate given that she gets regular blood work every 3 months. 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 Patient does not consume alcohol (3) Bilateral primary osteoarthritis of knee: Code(s): M17.0 - Bilateral primary osteoarthritis of knee Category: Medical Plan: Start PT Plan I spent 24 minutes reviewing patient's chart, evaluating patient, ordering d iagnostic workup, counseling patient and documenting in the chart Orders: Orders Complete Blood Count Auto Diff 3 Months M13.80 - Other specified arthritis, unspecified site, Z79.899 - Other ferry terminal agent (current) drug therapy Comprehensive Met. 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
[2023-12-26 08:22] VITALS: BP 118/80; PULSE 90; O2SAT 99; BMI 41.8
== END 2023-12-26 08:50 | disposition home or self-care (01) ==
PROVIDERS: PCP Internal Medicine; Visit Provider Student in an Organized Health Care Education/Training Program
DX: M17.0 Bilateral primary osteoarthritis of knee (principal); Z79.899 Other long term (current) drug therapy
CPT/HCPCS: 99213

== ENCOUNTER → 2023-12-26 08:15 | Outpatient (BNVA) | payer MEDICARE, MEDICAID, SELFPAY | PROVIDERS: PCP Internal Medicine; Visit Provider Student in an Organized Health Care Education/Training Program | DX: M13.80 Other specified arthritis, unspecified site (principal); M17.0 Bilateral primary osteoarthritis of knee; Z79.899 Other long term (current) drug therapy | CPT/HCPCS: 99212 ==

== ENCOUNTER 2024-06-21 10:03 | Outpatient (REF) | payer MEDICARE, MEDICAID, SELFPAY ==
[2024-06-21 13:06] LABS: MANUAL DIFF FLAG NO
[2024-06-21 13:10] LABS: Basophils Absolute Auto 0.1 X10*3/uL (0.0-0.2); Basophils Percent Auto 0.6 % (0-2); Eosinophils Absolute Auto 0.2 X10*3/uL (0.0-0.4); Eosinophils Percent Auto 1.3 % (0-4); Hematocrit 43.2 % (37.0-47.0); Hemoglobin 13.6 g/dl (12.0-16.0); Imm Gran Abs Auto 0.03 X10*3/uL (0.00-0.03); Imm Gran Pct Auto 0.3 % (0.0-0.4); Lymphocytes Absolute Auto 2.3 X10*3/uL (1.2-4.9); Lymphocytes Percent Auto 20.1 % (20-40); Mean Corpuscular HGB Conc 31.5 g/dl (31.0-35.0); Mean Corpuscular Hemoglobin 26.7 pg (27.0-33.0); Mean Corpuscular Volume 84.9 fL (80.0-98.0); Mean Platelet Volume 12.5 fL (9.4-12.3); Monocytes Absolute Auto 0.7 X10*3/uL (0.1-1.2); Monocytes Percent Auto 5.9 % (2-11); Neutrophils Percent Auto 71.8 % (45-73); Platelet Count 232 X10*3/uL (160-400); Red Blood Count 5.09 X10*6/uL (4.20-5.50); Red Cell Distribution Width 14.8 % (11.0-16.0); White Blood Count 11.2 X10*3/uL (4.8-10.8)
[2024-06-21 13:32] LABS: Alanine Aminotransferase 14 U/L (0-31); Albumin Level 3.9 g/dL (3.5-5.0); Alkaline Phosphatase 87 U/L (39-117); Anion Gap 11 (12-20); Aspartate Amino Transferase 25 U/L (5-31); Bilirubin Total 0.4 mg/dL (0.0-1.0); Blood Urea Nitrogen 10 mg/dL (9-16); C Reactive Protein 2.25 mg/dL (< or = 0.50); Carbon Dioxide 26 mmol/L (22-29); Chloride 106 mmol/L (96-108); Estimated Glomerular Filt Rate > 60; Glucose Random 88 mg/dL (60-115); Potassium 4.1 mmol/L (3.3-5.1); Sodium 139 mmol/L (135-145)
[2024-06-21 13:53] LABS: Erythrocyte Sedimentation Rate 13 MM/HR (0-20)
== END 2024-06-21 10:04 | disposition home or self-care (01) ==
LOC: HO.HMGCLDS 10:03
PROVIDERS: PCP Internal Medicine; Visit Provider Student in an Organized Health Care Education/Training Program
DX: M13.80 Other specified arthritis, unspecified site (principal); Z79.899 Other long term (current) drug therapy
CPT/HCPCS: 36415; 80053; 85025; 85652; 86140

== ENCOUNTER 2024-06-27 14:50 | Outpatient (AMB) | payer MEDICARE, MEDICAID, SELFPAY ==
--- NOTE | 2024-06-27 15:04 | A.OFFVIS_ITS ---
Vital Signs 06/27/24 15:07 Height 5 ft 1 in Weight 227 lb 8.273 oz BMI 43.0 BP 115/72 Blood Pressure Location Rt brachial Position Sitting Pulse 84 Pulse Source Pulse Oximeter Pulse Oximetry (%) 99 Oxygen Delivery Method Room Air Intake Visit Reasons: RA Intake Note: Patient presents for RA. Allergies loratadine [From CLARITIN-D] Allergy (Severe, Verified 06/27/24 15:07) DIFFICULTY BREATHING meperidine [From DEMEROL] Allergy (Severe, Verified 06/27/24 15:07) DIFFICULTY BREATHING pseudoephedrine [From CLARITIN-D] Allergy (Severe, Verified 06/27/24 15:07) DIFFICULTY BREATHING acetaminophen [From VICODIN] Allergy (Unknown, Verified 06/27/24 15:07) UNKNOWN Medication List - Last Reconciled 06/27/24 by Soila Perkins MD ascorbic acid-elderberry fruit 100-50 mg (Airborne (elderberry)) tabs PO vhiryni-ozxxvkoobherl-fhpfsuug 250-250-65 mg (Excedrin Migraine) 1 tab PO Q4-6H PRN dextromethorphan-guaifenesin 30-600 mg 2 tabs PO QWEEK fluocinonide 0.05% 1 appl topical BID-QID PRN folic acid 1 mg PO DAILY magnesium glycinate PO methotrexate sodium 20 mg (8 x 2.5 mg) PO QWEEK multivitamin 1 tab PO DAILY omeprazole 20 mg PO DAILY riboflavin (vitamin B2) 400 mg PO DAILY HPI Comments Details: 58-year-old female with seronegative arthritis returns for follow-up. She is taking methotrexate 20 mg weekly regularly plus folic acid 1 mg daily. She states that she has been doing about the same overall. She continues to have diffuse body aches. He has to psychotherapist and recently saw a psychiatrist. She started CBT. She does not want to take psychiatry medication. Initial history: This is a 57-year-old female who was diagnosed with seronegative arthritis back in 2018. Used to follow-up with Dr. Lyman then followed with Dr. Velez. She took methotrexate consistently for 3 years. She continued to have pain and increase inflammatory markers. Biologics where suggested as well as triple therapy and patient refused. She has not been seen by operations vice president since 2020. Over the last year patient has been having worsening pain. She has worsening bilateral lower back pain worse on the right side. She has severe pain of her legs. Mostly her knees. She was evaluated by you and then spine not sports for her lower back pain and she had 2 rounds of physical therapy which did not provide much benefit. [facility] Medical History Frontal fibrosing alopecia Normal pelvic exam Lumbar radicular pain Colonoscopy refused Mammogram normal Annual physical exam Rheumatoid arthritis PTSD (post-traumatic stress disorder) Depression with anxiety Overweight Chronic vertigo Migraine Surgical History H/O dilation and curettage H/O arthroscopy History of carpal tunnel release No pertinent past surgical history Family History Father Smoker Myocardial infarction Mother HTN (hypertension) History of CVA (cerebrovascular accident) Brother Myocardial infarction Brother No problems noted. Sister No problems noted. Sister No problems noted. Social History Housing: Apartment Alcohol intake: never Patient Tobacco Use Status: Never used Tobacco e-Cigarette/Vaping Use: Never Used Current occupational status: disabled Cognitive needs: No Hearing needs: No Vision needs: Yes Review of Systems Musc Reports myalgias, Reports arthralgias and Reports limited range of motion Physical Exam Vital Signs: Last Vital Signs Pulse 84 06/27/24 15:07 BP 115/72 06/27/24 15:07 Pulse Ox 99 06/27/24 15:07 Oxygen Delivery Method Room Air 06/27/24 15:07 BMI result Body Mass Index 43.0 Const General: cooperative, healthy appearing and comfortable Nutritional Appearance: obese morbidly obese Orientation/consciousness: patient oriented x3 Limitations: no limitations HEENT Head: Yes normocephalic and Yes atraumatic Resp Effort & Inspection: normal respiratory effort and able to speak in complete sentences Auscultation: clear to auscultation bilaterally Cardio Rate: regular rate Rhythm: regular rhythm Skin General skin exam: no rashes or lesions noted Neuro General: patient oriented x3 Extrem Other: Right 3rd MCP thickening mild tenderness No active synovitis both hands and wrists today Multiple fibromyalgia tender points Bilateral knee crepitus, no no swelling or warmth or significant pain with flexion-extension. Normal gait No ankle swelling or tenderness No MTP tenderness Negative MTP squeeze test Assessment & Plan Assessment & Plan (1) Seronegative arthritis: Comment: -ve RF -ve CCP dx 2018 MTX [id number] (not much improvement per patient) MTX 05/2023 effective Code(s): M13.80 - Other specified arthritis, unspecified site Category: Medical Plan: This is a 58-year-old female with seronegative RA who presents for follow-up. On methotrexate 20 mg weekly plus folic acid 1 mg daily. Doing quite well overall. I do not see any swollen joints on exam. 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 Patient does not consume alcohol (3) Fibromyalgia, primary: Code(s): M79.7 - Fibromyalgia Category: Medical Plan: We again discussed fibromyalgia with patient. She has to psychotherapist that she follows up with. She recently saw a psychiatrist and started CBT. She does not want to take any psychiatry medications. She has tried doing aquatherapy in the past and it helped her symptoms significantly but she can not go these days as her is going through health problems. She will be going back soon. She has done a sleep study within the last 2 years and it only showed mild sleep apnea not requiring CPAP machine She does not want any medicines for fibromyalgia Plan I spent 24 minutes reviewing patient's chart, evaluating patient, ordering diagnostic workup, counseling patient and documenting in the chart Orders: Orders Complete Blood Count Auto Diff 4 Months M13.80 - Other specified arthritis, unspecified site Comprehensive Met. Panel 4 Months M13.80 - Other specified arthritis, unspecified site C Reactive Protein 4 Months M13.80 - Other specified arthritis, unspecified site Erythrocyte Sedimentation Rate 4 Months M13.80 - Other specified arthritis, unspecified site Coding Level of Care Code Est Pt Level 4 (43229) Complex EM visit Add On G2211 Diagnoses Seronegative arthritis M13.80 [facility] methotrexate user Z79.899 Fibromyalgia, primary M79.7
[2024-06-27 15:07] VITALS: BP 115/72; PULSE 84; O2SAT 99; BMI 43.0
== END 2024-06-27 15:29 | disposition home or self-care (01) ==
PROVIDERS: PCP Internal Medicine; Visit Provider Student in an Organized Health Care Education/Training Program
DX: M13.80 Other specified arthritis, unspecified site (principal); Z79.899 Other long term (current) drug therapy; M79.7 Fibromyalgia
CPT/HCPCS: 99214; G2211

== ENCOUNTER → 2024-06-27 14:50 | Outpatient (BNVA) | payer MEDICARE, MEDICAID, SELFPAY | PROVIDERS: PCP Internal Medicine; Visit Provider Student in an Organized Health Care Education/Training Program | DX: M13.80 Other specified arthritis, unspecified site (principal); M79.7 Fibromyalgia; Z79.899 Other long term (current) drug therapy | CPT/HCPCS: 99212 ==

== ENCOUNTER 2024-07-01 07:26 | Outpatient (REF) | payer MEDICARE, MEDICAID, SELFPAY ==
[2024-07-01 10:33] LABS: MANUAL DIFF FLAG NO
[2024-07-01 10:37] LABS: Basophils Absolute Auto 0.1 X10*3/uL (0.0-0.2); Basophils Percent Auto 0.5 % (0-2); Eosinophils Absolute Auto 0.1 X10*3/uL (0.0-0.4); Eosinophils Percent Auto 1.4 % (0-4); Hematocrit 45.1 % (37.0-47.0); Hemoglobin 14.1 g/dl (12.0-16.0); Imm Gran Abs Auto 0.05 X10*3/uL (0.00-0.03); Imm Gran Pct Auto 0.5 % (0.0-0.4); Lymphocytes Absolute Auto 2.3 X10*3/uL (1.2-4.9); Lymphocytes Percent Auto 21.9 % (20-40); Mean Corpuscular HGB Conc 31.3 g/dl (31.0-35.0); Mean Corpuscular Hemoglobin 26.8 pg (27.0-33.0); Mean Corpuscular Volume 85.6 fL (80.0-98.0); Mean Platelet Volume 12.3 fL (9.4-12.3); Monocytes Absolute Auto 0.5 X10*3/uL (0.1-1.2); Neutrophils Absolute Auto 7.3 x10*3/uL (2.0-8.3); Neutrophils Percent Auto 70.7 % (45-73); Platelet Count 228 X10*3/uL (160-400); Red Blood Count 5.27 X10*6/uL (4.20-5.50); Red Cell Distribution Width 14.7 % (11.0-16.0); White Blood Count 10.3 X10*3/uL (4.8-10.8)
[2024-07-01 11:00] LABS: Alanine Aminotransferase 17 U/L (0-31); Albumin Level 3.9 g/dL (3.5-5.0); Alkaline Phosphatase 96 U/L (39-117); Anion Gap 10 (12-20); Aspartate Amino Transferase 27 U/L (5-31); Bilirubin Total 0.3 mg/dL (0.0-1.0); Blood Urea Nitrogen 12 mg/dL (9-16); Calcium 9.1 mg/dL (8.4-10.2); Carbon Dioxide 26 mmol/L (22-29); Chloride 109 mmol/L (96-108); Cholesterol 171 mg/dL (<200); Estimated Glomerular Filt Rate > 60; Glucose Fasting 91 mg/dL (60-99); HDL Cholesterol 51 mg/dL (>40); LDL Cholesterol Calculated 104 mg/dL (<100); Potassium 4.3 mmol/L (3.3-5.1); Sodium 141 mmol/L (135-145); Triglycerides 83 mg/dL (<150)
[2024-07-01 11:19] LABS: TSH reflex Free T4 1.37 uIU/mL (0.32-4.0); Vitamin D 25-OH Total 71.7 ng/mL (>30)
== END 2024-07-01 07:27 | disposition home or self-care (01) ==
LOC: HO.HMGCLDS 07:26
PROVIDERS: PCP Internal Medicine; Visit Provider Internal Medicine
DX: Z00.00 Encounter for general adult medical examination without abnormal findings (principal); E55.9 Vitamin D deficiency, unspecified
CPT/HCPCS: 36415; 80053; 80061; 82306; 84443; 85025

== ENCOUNTER 2024-07-03 10:21 | Outpatient (AMB) | payer MEDICARE, MEDICAID, SELFPAY ==
[2024-07-03 10:23] VITALS: BP 124/80; PULSE 73; O2SAT 99; BMI 42.9
--- NOTE | 2024-07-03 10:23 | A.OFFPC_ITS ---
Vital Signs 07/03/24 10:23 Height 5 ft 1 in Weight 227 lb BMI 42.9 BP 124/80 Blood Pressure Location Lt brachial Position Sitting Pulse 73 Pulse Source Pulse Oximeter Pulse Oximetry (%) 99 Oxygen Delivery Method Room Air Intake Visit Reasons: Annual PE Intake Note: Pt is here today for PE. Allergies loratadine [From CLARITIN-D] Allergy (Severe, Verified 07/03/24 10:51) DIFFICULTY BREATHING meperidine [From DEMEROL] Allergy (Severe, Verified 07/03/24 10:51) DIFFICULTY BREATHING pseudoephedrine [From CLARITIN-D] Allergy (Severe, Verified 07/03/24 10:51) DIFFICULTY BREATHING acetaminophen [From VICODIN] Allergy (Unknown, Verified 07/03/24 10:51) UNKNOWN Medication List - Last Reconciled 07/03/24 by Venus Schaefer MD ascorbic acid-elderberry fruit 100-50 mg (Airborne (elderberry)) tabs PO wnipwuk-hvxnmkhtqotfb-zvbyotfp 250-250-65 mg (Excedrin Migraine) 1 tab PO Q4-6H PRN fluocinonide 0.05% 1 appl topical BID-QID PRN folic acid 1 mg PO DAILY magnesium glycinate PO multivitamin 1 tab PO DAILY omeprazole 20 mg PO DAILY riboflavin (vitamin B2) 400 mg PO DAILY Tobacco use date assessed: 07/03/24 Dental Screening Dental Screen Date: 07/03/24 Did you have a dental visit in the last 12 months?: No Did you have a dental problem in the last 6 months where you did not have access to dental care?: No Was dental information given to patient?: Patient declined HPI Annual PE HPI Details Patient presents for physical COUNTS INCLUDE 234 BEDS AT THE [facility] Medical History Frontal fibrosing alopecia Normal pelvic exam Lumbar radicular pain Colonoscopy refused Mammogram normal Annual physical exam Rheumatoid arthritis PTSD (post-traumatic stress disorder) Depression with anxiety Overweight Chronic vertigo Migraine Surgical History H/O dilation and curettage H/O arthroscopy History of carpal tunnel release No pertinent past surgical history Family History Father Smoker Myocardial infarction Mother HTN (hypertension) History of CVA (cerebrovascular accident) Brother Myocardial infarction Brother No problems noted. Sister No problems noted. Sister No problems noted. Social History Housing: Apartment Alcohol intake: never Patient Tobacco Use Status: Never used Tobacco e-Cigarette/Vaping Use: Never Used service: No Current occupational status: disabled Cognitive needs: No Hearing needs: No Vision needs: Yes Questionnaire PHQ-9 Over the last 2 weeks, how often have you been bothered by any of the following problems? 1. Little interest or pleasure in doing things: more than half the days 2. Feeling down, depressed, or hopeless: several days 3. Trouble falling or staying asleep, or sleeping too much: nearly every day 4. Feeling tired or having little energy: nearly every day 5. Poor appetite or overeating: several days 6. Feeling bad about yourself - or that you are a failure or have let yourself or your family down: not at all 7. Trouble concentrating on things, such as reading the newspaper or watching television: several days 8. Moving or speaking so slowly that other people could have noticed. Or the opposite - being so fidgety or restless that you have been moving around a lot more than usual: not at all 9. Thoughts that you would be better off or of hurting yourself in some way: not at all Total score: 11 Depression Screening Interpretation: Positive (Patient is starting cognitive behavior therapy for PTSD,) Depression Screening Follow-up: Existing condition and In treatment Depression Screening Done: Yes 39492 - PHQ-9 Billing: Yes Source: Developed by Drs. Hesham Evans, Rox Mills, Yung Garcia and colleagues, with an educational fay from [employer]. Thrive Questionnaire Date Thrive assessed: 07/03/24 I am a: Patient What is your living situation today?: I have a steady place to live Within the past 12 months, did the food you bought not last and you didn't have the money to get more?: Never true Within the past 12 months, did you worry whether your food would run out before you got money to buy more?: Never true Do you have trouble paying for medicines?: No Do you have trouble getting transportation to medical appointments?: Yes Do you have trouble paying your heating and electricity bill?: No Do you have trouble taking care of your child, family member or friend?: No Do you have trouble with day-to-day activities such as bathing, preparing meals, shopping, managing finances, etc.?: No Are you currently unemployed and looking for a job?: No Are you interested in more education?: Yes Please select the resources that you would like help with: None Currently or been in a relationship where the following occur: No concerns reported THRIVE Score: 1 AUDIT C Alcohol Use Questionnaire (AUDIT-C) 1. How often do you have a drink containing alcohol?: Never 3. How often do you have six or more drinks on one occasion?: Never Total Score: 0 ADITI-7 AMB Questionnaire ADITI-7 Date ADITI - 7 assessed: 07/03/24 Feeling nervous, anxious, or on edge: 2 = More than half the days Not being able to stop or control worryin = Nearly every day Worrying too much about different things: 3 = Nearly every day Trouble relaxin = Nearly every day Being so restless that it is hard to sit still: 0 = Not at all Becoming easily annoyed or irritable: 2 = More than half the days Feeling afraid as if something awful might happen: 1 = Several days Total ADITI-7 score (0-4 normal; 5-9 mild; 10-14 moderate; 15-21 severe): 14 Source: Developed by Drs. Hesham Evans, Rox Mills, Yung Garcia and colleagues, with an educational fay from [employer]. ADITI-7 Assessment Billing ADITI-7 Assessment Tool: ADITI-7 Assessment 56182 Review of Systems Const All systems reviewed & are unremarkable except as noted in HPI and below Eyes Reports no additional complaints ENT Reports no additional complaints Card Reports no additional complaints Resp Reports no additional complaints GI Reports no additional complaints Reports no additional complaints Physical exam (Primary Care) Vital Signs: Last Vital Signs Pulse 73 07/03/24 10:23 BP 124/80 07/03/24 10:23 Pulse Ox 99 07/03/24 10:23 Oxygen Delivery Method Room Air 07/03/24 10:23 BMI result Body Mass Index 42.9 Tobacco/Smoking Status: Tobacco use Status Tobacco use date assessed 07/03/24 07/03/24 10:31 Patient Tobacco Use Status Never used Tobacco 07/03/24 10:31 e-Cigarette/Vaping Use Never Used 07/03/24 10:23 PHQ-9: PHQ-9 Score PHQ-9: Total score 11 07/03/24 11:24 Depression Screening Interpretation: Positive (Patient is starting cognitive behavior therapy for PTSD,) Depression Screening Follow-up: Existing condition and In treatment Thrive Assessment: Date of Thrive Assessment Date Thrive assessed 07/03/24 07/03/24 10:31 Currently or been in a relationship where the following occur: No concerns reported Const General: no acute distress HENMT Head: Yes normal to inspection Ears: hearing grossly normal bilaterally Face and sinus: Yes normal facial exam Mouth: Normal oral and palatal mucosa present Throat: Yes posterior oropharynx normal Eyes General: appearance normal, both eyes and all related structures Neck Neck: Yes no lymphadenopathy and Yes supple Resp Effort & Inspection: normal respiratory effort Auscultation: clear to auscultation bilaterally Cardio Rhythm: regular rhythm Heart sounds: S1 normal heart sound present and S2 normal heart sound present GI Inspection: Yes normal to inspection Palpation (GI): Soft to palpation Percussion: Yes normal to percussion Auscultation: normal bowel sounds Coding Level of Care Code Est Pt Prev Care 40-64y(09336) Diagnoses Annual physical exam Z00.00 GERD (gastroesophageal reflux disease) K21.9 PTSD (post-traumatic stress disorder) F43.10 Vitamin D deficiency E55.9 Additional Codes ADITI-7 Assessment Billing - ADITI-7 Assessment Tool: ADITI-7 Assessment 49030 ([id number]) PHQ-9 - 98865 - PHQ-9 Billing: Yes ([id number]) Assessment & Plan Assessment & Plan (1) Annual physical exam: Code(s): Z00.00 - Encounter for general adult medical examination without abnormal findings Category: Medical Plan: Well-balanced diet regular physical activity weight loss discussed with the patient. 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 (3) PTSD (post-traumatic stress disorder): Comment: 1992, f/u with psychotherapist Code(s): F43.10 - Post-traumatic stress disorder, unspecified Category: Medical Plan: Continue to follow-up with therapist psychiatrist and cognitive behavior therapy (4) Vitamin D deficiency: Code(s): E55.9 - Vitamin D deficiency, unspecified Category: Medical Plan: Continue vitamin-D supplement Orders: Orders TSH reflex Free T4 1 Year E55.9 - Vitamin D deficiency, unspecified, Z00.00 - Encounter for general adult medical examination without abnormal findings Comprehensive [place]. Panel Fast 1 Year E55.9 - Vitamin D deficiency, unspecified, Z00.00 - Encounter for general adult medical examination without abnormal findings Lipid Panel 1 Year E55.9 - Vitamin D deficiency, unspecified, Z00.00 - Encounter for general adult medical examination without abnormal findings Complete Blood Count Auto Diff 1 Year E55.9 - Vitamin D deficiency, unspecified, Z00.00 - Encounter for general adult medical examination without abnormal findings Vitamin D 25-OH Total 1 Year E55.9 - Vitamin D deficiency, unspecified, Z00.00 - Encounter for general adult medical examination without abnormal findings UA w Microscopic 1 Year E55.9 - Vitamin D deficiency, unspecified, Z00.00 - Encounter for general adult medical examination without abnormal findings
--- OUTSIDE RECORDS SUMMARY | 2024-07-03 10:45 | XMS_ITS | Data Portability ---
Author Organization [place] - [facility],, KARY MOON MD Address [address] [address] Assessment No assessment recorded. Plan of Treatment Reminders Order Date Submit Date Provider Last Modified By Organization Details Last Modified Time Details Appointments None recorded. Lab None recorded. Referral None recorded. Procedures None recorded. Surgeries None recorded. Imaging MAMMO, screening, digital, bilateral - baseline mammo, patient is anxious 2015 016 [facility] (Central Scheduling Radiology), [address] [place] [address], [id number], 6 07:20:34 Medication Orders None recorded. Patient TargetsNo targets recorded. Patient Instructions Encounter Date Encounter Id Patient Instructions Last Modified By Organization Details Last Modified Time 08/07/2015 [id number] abnormal uterine bleeding: care instructions Not available 08/07/2015 11:49:35 She is here for a consultation, refered by Dr. Barbosa, for DUB and an endometrial polyp. She was given an oral tranexamic acid, To see if the polyp would shed, but she developed blurred vision and pain going down my right arm and calf, and lethargic confusion, that lasted for a day and a half. She had been having the DUB from 04/18/15, to 05/22, then stopped and then restarted 05/29/15 and went to 06/14/15, then restarted again 07/23/to 07/25/15, no bleeding since then. She had been bleeding nearly every day, but has had no bleeding since. She did not have an emb during this and has never had an EMB. Many years ago she was taking the OCP, she stopped the pill more than 8 years ago and her menses were regular until last Spring. She did begin to have normal periods, getting less time in between , then she had no menses from 12/08 to 03/10. She was initially treated with the OCP, then provera, then tranexamic acid. The DUB began after a period of three months of amenorrhea, as she is iraida-menopausal. We will obtain the records of her sono hysterogram. If the polyp is less than one cm and she is not symptomatic anymore then she can wait a year, repeat the sonogram and see if the polyp has resolved. If the polyp is larger than one cm, or is symptomatic, then she should return here to have an endometrial biopsy with Mylex, to try to remove the polyp. ADDENDUM: The polyp was 10 by 8 by 11 mm. She is advised it would be preferable to remove it, with a mylex emb in the office, if possible.?? She would like??to give this some though, she had excruciating pain with the sono hysterogram and so is leery of having more pelvic pain from a procedure. We discussed that she could have a D and C at the hospital, but likely we can do this quickly in the??office and that would be preferable, we can medicate her prior, orally. She will get back to us next week with her decision. All questions answered. Face to face discussion 45 minutes bryan Not available 08/07/2015 11:49:35 08/17/2015 [id number] She is here to discuss her recent heavy vaginal bleeding episode and sonohysterogram at Dr. Barbosa's office that showed an 11 mm polyp. Note from last visit: She is here for a consultation, refered by Dr. Barbosa, for DUB and an endometrial polyp. She was given an oral tranexamic acid, To see if the polyp would shed, but she developed blurred vision and pain going down my right arm and calf, and lethargic confusion, that lasted for a day and a half. She had been having the DUB from 04/18/15, to 05/22, then stopped and then restarted 05/29/15 and went to 06/14/15, then restarted again 07/23/to 07/25/15, no bleeding since then. She had been bleeding nearly every day, but has had no bleeding since. She did not have an emb during this and has never had an EMB. Many years ago she was taking the OCP, she stopped the pill more than 8 years ago and her menses were regular until last Spring. She did begin to have normal periods, getting less time in between , then she had no menses from 12/08 to 03/10. She was initially treated with the OCP, then provera, then tranexamic acid. The DUB began after a period of three months of amenorrhea, as she is iraida-menopausal. We will obtain the records of her sono hysterogram. If the polyp is less than one cm and she is not symptomatic anymore then she can wait a year, repeat the sonogram and see if the polyp has resolved. If the polyp is larger than one cm, or is symptomatic, then she should return here to have an endometrial biopsy with Mylex, to try to remove the polyp. ADDENDUM: The polyp was 10 by 8 by 11 mm. She is advised it would be preferable to remove it, with a mylex emb in the office, if possible.?? She would like??to give this some though, she had excruciating pain with the sono hysterogram and so is leery of having more pelvic pain from a procedure. We discussed that she could have a D and C at the hospital, but likely we can do this quickly in the??office and that would be preferable, we can medicate her prior, orally. She will get back to us next week with her decision. After long discussion today she declines emb with oral percocet, she feels she was, traumatised, by her sonohysterogram and could not tolerate a vagina lprocedure while awake. Risks of surgery, and costs, discussed, she is aware but elects hysteroscopy with D nad C. She has not had bleeding for 2 weeks now, and we also discussed that we could wait to see if the DUB recurs, however she would like to have the polyp removed before she runs the risk of having another episode of the cramping pain and bleeding that she experienced laast episode. She is aware that there is no guarantee that surgery will resolve her problems. Return for pre op appointment for D and C with hysteroscopy. Face to face discussion 25 minutes bryan Not available 08/17/2015 10:09:25 09/01/2015 [id number] She is here for pre operative discussion, for her upcoming D and C with hysteroscopy. She had a sonohysterogram at Dr. Barbosa's office that showed an 11 mm endometrial polyp and she is haivng episodes of menorrhagia. LMP was 07/27/15, menses have been regular so she is overdue. She uses condoms for control, but has not been sexually active since before N[facility]. __ Note from last visit: Discussion Notes She is here to discuss her recent heavy vaginal bleeding episode and sonohysterogram at Dr. Barbosa's office that showed an 11 mm polyp. Note from last visit: She is here for a consultation, refered by Dr. Barbosa, for DUB and an endometrial polyp. She was given an oral tranexamic acid, To see if the polyp would shed, but she developed blurred vision and pain going down my right arm and calf, and lethargic confusion, that lasted for a day and a half. She had been having the DUB from 04/18/15, to 05/22, then stopped and then restarted 05/29/15 and went to 06/14/15, then restarted again 07/23/to 07/25/15, no bleeding since then. She had been bleeding nearly every day, but has had no bleeding since. She did not have an emb during this and has never had an EMB. Many years ago she was taking the OCP, she stopped the pill more than 8 years ago and her menses were regular until last Spring. She did begin to have normal periods, getting less time in between , then she had no menses from 12/08 to 03/10. She was initially treated with the OCP, then provera, then tranexamic acid. The DUB began after a period of three months of amenorrhea, as she is iraida-menopausal. We will obtain the records of her sono hysterogram. If the polyp is less than one cm and she is not symptomatic anymore then she can wait a year, repeat the sonogram and see if the polyp has resolved. If the polyp is larger than one cm, or is symptomatic, then she should return here to have an endometrial biopsy with Mylex, to try to remove the polyp. ADDENDUM: The polyp was 10 by 8 by 11 mm. She is advised it would be preferable to remove it, with a mylex emb in the office, if possible.?? She would like??to give this some though, she had excruciating pain with the sono hysterogram and so is leery of having more pelvic pain from a procedure. We discussed that she could have a D and C at the hospital, but likely we can do this quickly in the??office and that would be preferable, we can medicate her prior, orally. She will get back to us next week with her decision. After long discussion today she declines emb with oral percocet, she feels she was, traumatised, by her sonohysterogram and could not tolerate a vagina lprocedure while awake. Risks of surgery, and costs, discussed, she is aware but elects hysteroscopy with Maida Vu. She has not had bleeding for 2 weeks now, and we also discussed that we could wait to see if the DUB recurs, however she would like to have the polyp removed before she runs the risk of having another episode of the cramping pain and bleeding that she experienced laast episode. She is aware that there is no guarantee that surgery will resolve her problems. Return for pre op appointment for Maida and Horace with hysteroscopy. She has never had a mammogram and cancelled the one we set up for her, she wants to deal wiht one medical issue at a time, she does agree to go in a few months for that. She is here for discussion of her upcoming scheduled surgical procedure.?? We discussed the risks of surgery, including , stroke, DVT/PE, hemorrhage, infection, and injury to bowel/bladder or pelvic organs.?? We discussed the possibility that surgery may not resolve the problems that she is experiencing. We discussed the potential risks of anesthesia.?? All questions were answered.?? Consent for surgery was explained and signed. She appears ready for the proposed surgery. An RX for narcotics {{was was not*}} given. Not available 09/01/2015 08:46:13 09/16/2015 [id number] She is here for the post op visit after D and C with hysteroscopy. The tissue was all benign, she feels well, I feel awesome! .?? There was visualized a 1 cm endometrial polyp, as well as a slight indentation of the fundus , either septum or bicurnuate. The polyp was entirely removed. She is no longer having abnormal bleeding. She may now return to Dr. Barbosa's office for routine care. Face to face discussion 15 minutes Not available 09/16/2015 08:51:37 Reason for Referral None Reported. Results Created Date Observation Date Name Description Value Unit Range Abnormal Flag Note LastModifiedBy Organization Detail LastModifiedTime 09/07/19 16 09/07/2015 surgi vicenta patho logy study surgicalcase A.END OCERV IX, CURET TAGE: - PROLI FERAT JEAN PIERRE ENDOM ETRIU M. - BENIG N SQUAM OUS MUCOS A AND ENDOC ERVIC AL GLAND ULAR MUCOS A. B.END OMETR IUM, CURET TAGE (WITH POLYP ): - PROLI FERAT JEAN PIERRE ENDOM ETRIU M; see note. NOTE: Findi ngs diagn ostic of a hyper plast ic endom etria l polyp are not seen. Todd ariza M.D., Patho logis t (Case elect donny hinkle d 09 08 2015) Pre-O p/Cli nical Diagn osis: *ENDO METRI AL POLYP , DYSFU NCTIO NAL BLEED ING Speci men and Site: A. ENDOC ERVIX -CURE TTAGE B. ENDOM ETRIU M, POLYP -BIOP SY Gross Descr iptio n: A. Label ed endo cervi vicenta curet tings . Recei liane in forma tomas, on telfa , is a 1.1 x 0.8 x 0.1 cm aggre gate of soft, reagan-r ed, curet jaren tissu e fragm ents, which are wrapp ed in paper and submi tted in toto in one casse tte, multi ple piece s, x2. B. Label ed endo metri al curet tings with polyp . Recei liane in blood -ting ed forma tomas is a 2.5 x 1.3 x 0.2 cm aggre gate of soft, pink- red, curet jaren tissu e fragm ents, which are wrapp ed in paper and submi tted in toto in one casse tte, multi ple piece s, x2. [place] Physi cians : IMANI QUAN N /#[phone]) [phone] [id number] [facility] log[facility] servi shona provi ded by [facility] Not Available [facility], Cytopathology Service [address] [place], [address], 09/08/2015 18:04:39 08/07/19 16 07/15/2015 imagi ng/courtney cruz tic resul t No observ ation record ed. [email or web address] Not Available 2015 09:11:24 Result Notes None recorded. Problems Name Problem SNOMED Code Status Onset Date Resolution Date Notes Provider Name and Address Organization Details Recorded Time Dysfunctional uterine bleeding Active Kary Moon MD [address], [place], [address], [place] - [facility], 6 08:50:47 Morbid obesity 969207404 Active Kary Moon MD [address], [place], [address], [place] - [facility], 6 08:50:47 Polyp of corpus uteri 84109945 Active Kary Moon MD [address], [place], [address], [place] - [facility], 6 08:51:37 Problem Notes None recorded. Procedures Surgical History Date Name Laterality Status Provider Name and Address Organization Details Recorded Time 04/26/2013 Other completed Rosie Hein [place] - [facility], 08/07/2015 08:30:04 Imaging Results Imaging Date Name Status LastModified by Organiz [facility] Details LastModified Time 07/15/2015 imaging/diag nostic result completed [email or web address] Information not available 09/01/2015 09:11:24 Procedure Notes None recorded. Medical Equipment None Reported. Allergies Allergen ID Allergen Name Allergen Category Reaction Reaction Severity Criticality Documentation Date Start Date Code Code System Note Provider Name and Address Organization Details Recorded Time 19180 acetamino phen / hydrocodo ne medicatio n nausea Not available Not available 08/07/2015 17252 2 RxNorm RosieKAMRON Abraham in [facility], 6 08:30:04 29355 Demerol medicatio n anaphylax is Not available Not available 08/07/2015 45817 1 RxNorm RosieKAMRON Abraham in [facility], 6 08:30:04 75738 Claritin- D medicatio n irregular heart rate Not available Not available 08/07/2015 KAMRON Hwang in [facility], 6 08:30:04 78693 tranexami c acid medicatio n myalgias (muscle pain) Not available Not available 08/07/2015 89344 RxNorm blur visio n , migra ine , confu ssion KAMRON Hwang in [facility], 6 08:30:04 Medications Name Sig Start Date Stop Date Status Note LastModified by Organization Details LastModified Time amoxicillin 500 mg capsule active Not Available Not Available Not Available Apri 0.15 mg-0.03 mg tablet active Not Available Not Available No t Available medroxyprogesterone 5 mg tablet active Not Available Not Available Not Available iron active Not Available Not Availa ble Not Available Vitamin D3 active Not Available Not Av ailable Not Available tranexamic acid 650 mg tablet active Not Available Not Available No t Available Vitals Date Recorded Body mass index (BMI) Body weight Heart rate Body height Systolic blood pressure Diastolic blood pressure Provider Name and Address Organization Details Last Updated DateTime 6 41.5 kg/m2 70621.8 17462 g 81 /min 154.94 cm 124 mm[Hg] 63 mm[Hg] Rosie Greenwood in [facility], 6 08:30:04 Date Recorded Body height Heart rate Body mass index (BMI) Body weight Systolic blood pressure Diastolic blood pressure Provider Name and Address Organization Details Last Updated DateTime 6 154.94 cm 88 /min 41.4 kg/m2 43089.7 2903 g 140 mm[Hg] 64 mm[Hg] Nicole Greenwood in [facility], 6 09:22:36 Date Recorded Heart rate Body mass index (BMI) Body height Body weight Systolic blood pressure Diastolic blood pressure Provider Name and Address Organization Details Last Updated DateTime 6 94 /min 41.5 kg/m2 154.94 cm 66458.8 15947 g 132 mm[Hg] 70 mm[Hg] Nicole Greenwood in [facility], 6 08:29:59 Date Recorded Body height Body mass index (BMI) Body weight Heart rate Systolic blood pressure Diastolic blood pressure Provider Name and Address Organization Details Last Updated DateTime 6 154.94 cm 41.7 kg/m2 544484. 861967 g 89 /min 122 mm[Hg] 51 mm[Hg] Rosie Angel Luis Greenwood in [facility], 6 08:25:44 Social History Question Answer Notes LastModified by Organizat ion Details LastModified Time Tobacco Smoking Status Never Smoker Not Available [facility] 04/28/2020 03:19:42 What Is Your Level Of Alcohol Consumption? Occasional [id number] Information not available 04/28/2020 What Is Your Level Of Caffeine Consumption? Moderate [id number] Information not available 04/28/2020 What Type Of Diet Are You Following? REGULAR [id number] Information not available 04/28/2020 Which Illicit Or Recreational Drugs Have You Used? No [id number] Information not available 04/28/2020 Do You Reside In Or Have You Traveled To An Area Where Ebola Virus Transmission Is Active? No [id number] Information not available 04/28/2020 Education 4 Year College Information not available 08/07/2015 What Is Your Occupation? [employer] [id number] Information not available 04/28/2020 Marital Status Domestic Partner Lived With Boyfriend 21 Yrs. Information not available 08/07/2015 Are You Sexually Active? Yes [id number] Information not available 04/28/2020 How Much Tobacco Do You Smoke? No [id number] Information not available 04/28/2020 General Stress Level High Information not available 08/07/2015 How Many Years Have You Smoked Tobacco? 0 [id number] Information not available 04/28/2020 Sex: Unknown Functional Status Question Answer Note LastModified by Organizat ion Details LastModified Time What is your exercise level? Occasional [id number] Information not available 04/28/2020 Mental Status None recorded. Family History Relationship Description Onset Age of this Age Resolved Age Notes LastModified by Organization Details LastModified Time Mother Cerebrovascu lar accident stroke Not available 0 09/16/2015 08:50:31 Father Heart disease Not available 08/25 08:50:31 Brother Heart disease Not available 08/25 08:50:31 Medical History Condition Response Anesthesia complications N High Blood Pressure N Thyroid Problems N Kidney or Bladder Problems N GI Problems N Depression Y Lung Disease N Defects or Inherited Disease N History of Ovarian Cancer N Anemia Y History of Breast Cancer N BRCA testing in past N Psychiatric Illness N Anxiety Disorder N Diabetes N Arthritis N Headaches or Migraines Y Infertility N Asthma N History of Cancer N Endometriosis N Hepatitis N Heart Disease N Hypertension N Gynecological History Statement/Question Response Flow Heavy Date of LMP 07/27/2015 Frequency of Cycle (Q days) Menses Monthly N Duration of Flow (days) Age at Menarche 10 Current Control Method Condoms Age at First Child 1 Obstetrics History GPAL:G 1 P 0 0 1 0 Type Value Induced 1 Living 0 Total 1 Immunizations Vaccine Type Date Status Note Provider Nam e and Address Organization Details Recorded Time TST-PPD intradermal 5 completed [facility] [facility], 08/07/2015 08:30:04 Influenza, split virus, trivalent, preservative 5 completed [place] [facility], 08/07/2015 08:30:04 tetanus toxoid, unspecified formulation 4 completed Rosie carrion [place] - [facility], 08/07/2015 08:30:04 Past Encounters Encounter ID Performer Location Encounter Start Date Encounter Closed Date Diagnosis/Indication Diagnosis SNOMED-CT Code Diagnosis ICD10 Code Diagnosis Note [id number] MD KARY Washington MD [address] [place] [address] 08/07/2015 08:04:10 08/07/2015 13:12:27 Screening mammography 25735762 Z12.31 Dysfunctio nal uterine bleeding 64897198 N93.8 Morbid obesity 154011481 E66.01 BMI 41 [id number] MD KARY Washington MD [address] [place] [address] 08/17/2015 09:14:18 08/17/2015 11:42:09 Polyp of corpus uteri 70172229 N84.0 Dysfunctio nal uterine bleeding 01667184 N93.8 [id number] MD KARY Washington MD [address] [place] [address] 09/01/2015 08:20:16 09/01/2015 13:38:45 Polyp of corpus uteri 84793425 N84.0 Dysfunctio nal uterine bleeding 73383064 N93.8 [id number] MD KARY Washington MD [address] [facility],[address] [place] [address] 09/16/2015 08:19:50 09/16/2015 11:36:46 Polyp of corpus uteri 77568778 N84.0 Health Concerns Section Related Observation LastModified by Organization Detai ls LastModified Time None Recorded Concern Status LastModified by Organization Details LastModified Time None Recorded Advance Directives Directive None Recorded Payers Encounter Date Sequence Insurance Name Policy Number Policy Sanders Covered Member ID Sanders Member ID Guarantor Name 08/07/2015 1 [facility] (O) [id number] Aidee Stephen [id number] Aidee Stephen 08/17/2015 1 [facility] ([facility] [id number] Aidee Stephen [id number] Aidee Stephen 09/01/2015 1 [facility] ([facility] [id number] Aidee Stephen [id number] Aidee Stephen 09/16/2015 1 [facility] ([facility] [id number] Aidee Stephen [id number] Aidee Stephen OBGyn Episode No OBEpisode recorded.
== END 2024-07-03 15:55 | disposition home or self-care (01) ==
PROVIDERS: PCP Internal Medicine; Visit Provider Internal Medicine
DX: Z00.00 Encounter for general adult medical examination without abnormal findings (principal); K21.9 Gastro-esophageal reflux disease without esophagitis; F43.10 Post-traumatic stress disorder, unspecified; E55.9 Vitamin D deficiency, unspecified

== ENCOUNTER → 2024-07-03 10:21 | Outpatient (BNVA) | payer MEDICARE, MEDICAID, SELFPAY | PROVIDERS: PCP Internal Medicine; Visit Provider Internal Medicine | DX: Z00.00 Encounter for general adult medical examination without abnormal findings (principal); K21.9 Gastro-esophageal reflux disease without esophagitis; F43.10 Post-traumatic stress disorder, unspecified; E55.9 Vitamin D deficiency, unspecified | CPT/HCPCS: 96127; 99396 ==

== ENCOUNTER 2024-11-25 09:51 | Outpatient (REF) | payer MEDICARE, MEDICAID, SELFPAY ==
[2024-11-25 10:05] LABS: MANUAL DIFF FLAG NO
--- OUTSIDE RECORDS SUMMARY | 2024-11-25 10:39 | XMS_ITS | Clinical Summary ---
Author Organization [facility] [address] [facility] Address [address] [place] [address] Phone Care Team Providers Care Shale Processing Technician Name Role Phone Venus Schaefer MD Primary Care Provider [phone] Allergies Active Allergy Reactions Criticality Noted Date Comments Loratadine-Pseudoephedrine Meperidine 06/03/2024 Hydrocodone-Acetaminophen 06/03/2024 Medications omeprazole OTC (PriLOSEC OTC) 20 mg EC tablet Take 1 tablet (20 mg total) by mouth 1 (one) time each day. Do not crush, chew, or split. Active Active Problems Problem Noted Date Diagnosed Date Migraine syndrome 06/03/2024 Overview (06/03/2024): [facility] Impression essentially similar non contrast head Ct when compared to 08-27-2004 06-02-2016 Vertigo 06/03/2024 Depression 06/03/2024 Rheumatoid arthritis ([facility]/HCC V24, CMS/HCC V28) 06/03/2024 Fibromyalgia 06/03/2024 Alopecia 06/03/2024 Surgical History Surgery Date Site/Laterality Comments CARPAL TUNNEL RELEASE Bilateral D&C FIRST TRIMESTER / TX INC OMPLETE / MISSED / SEPTIC / INDUCED Medical History Medical History Date Comments GERD (gastroesophageal reflux disease) Anxiety Arthritis Depression Family History Medical History Relation Name Comments Diabetes Brother 1 Yonathan Stephen JR Heart attack Brother 2 Silas Stephen Heart attack Father Yonathan Stephen, Stroke Mother Page Stephen Relation Name Status Comments Brother 1 Yonathan Stephen, JR Brother 2 Silas Stephen Father Yonathan Stephen, SR Mother Page Stephen Social History Tobacco Use Types Packs/Day Years Used Date Smoking Tobacco: Never Smokeless Tobacco: Never Alcohol Use Standard Drinks/Week Comments Not Currently 0 (1 standard drink = 0.6 oz pur e alcohol) Comments Unknown Sex and Gender Information Value Date Recorded Sex Assigned at Not on file Legal Sex Female 11:50 PM EST Gender Identity Not on file Sexual Orientation Not on file Obstetrics History Last Filed Vital Signs Vital Sign Reading Time Taken Comments Blood Pressure - - Pulse - - Temperature - - Respiratory Rate - - Oxygen Saturation - - Inhaled Oxygen Concentration - - Weight 103 kg (227 lb) 06/03/2024 8:48 AM EST Height 152.4 cm (5') 06/03/2024 8:48 AM EST Body Mass Index 44.33 06/03/2024 8:48 AM EST Plan of Treatment Health Maintenance Due Date Last Done Comments Breast Cancer Screening 1965 DTaP,Tdap,and Td Vaccines (1 - Tdap) 1984 Hepatitis B Vaccines (1 of 3 - 19+ 3-dose series) 1984 Cervical Cancer Screening: P ap Smear 1986 Zoster Vaccines (1 of 2) 09/25/2015 Pneumococcal Vaccine: 50+ Years (2 of 2 - PPSV23) 05/02/2019 05/02/2018 COVID-19 Vaccine (3 - Pfizer risk series) 08/01/2021 07/04/2021, 10/30/2020 Colorectal Cancer Screening: Colonoscopy 05/29/2022 Depression Screening 05/29/2022 HIV Screening 05/29/2022 Hepatitis C Screening 05/29/2022 Medicare Annual Wellness Visit 05/29/2022 Social Influencers of Health Screening 05/29/2022 Influenza Vaccine (Season Ended) 2025 RSV Immunization Adult Patients (1 - 1-dose 75+ series) 2040 Pneumococcal Vaccine: Pediatrics (0 to 5 Years) and At-Risk Patients (6 to 64 Years) Aged Out 05/02/2018 No longer eligible b ased on patient's age to complete this topic HIB Vaccines Aged Out No longer eligi ble based on patient's age to complete this topic HPV Vaccines Aged Out No longer eligi ble based on patient's age to complete this topic Hepatitis A Vaccines Aged Out No long er eligible based on patient's age to complete this topic IPV Vaccines Aged Out No longer eligi ble based on patient's age to complete this topic MMR Vaccines Aged Out No longer eligi ble based on patient's age to complete this topic Meningococcal ACWY Vaccine Aged Out N o longer eligible based on patient's age to complete this topic Meningococcal B Vaccine Aged Out No l onger eligible based on patient's age to complete this topic RSV Immunization Patients Under 20 months Aged Out No longer eligible b ased on patient's age to complete this topic Varicella Vaccines Aged Out No longer eligible based on patient's age to complete this topic Insurance MEDICARE MEDICAID - [place] Care Teams Shale Processing Technician Relationship Specialty Start Date End Date Venus Schaefer MD [address] [place] [address] PCP - General Internal Medicine 05/20/24
[2024-11-25 11:02] LABS: Basophils Absolute Auto 0.1 X10*3/uL (0.0-0.2); Basophils Percent Auto 0.5 % (0-2); Eosinophils Absolute Auto 0.1 X10*3/uL (0.0-0.4); Eosinophils Percent Auto 1.2 % (0-4); Hematocrit 45.5 % (37.0-47.0); Hemoglobin 14.2 g/dl (12.0-16.0); Imm Gran Abs Auto 0.03 X10*3/uL (0.00-0.03); Imm Gran Pct Auto 0.3 % (0.0-0.4); Lymphocytes Absolute Auto 2.2 X10*3/uL (1.2-4.9); Lymphocytes Percent Auto 24.2 % (20-40); Mean Corpuscular HGB Conc 31.2 g/dl (31.0-35.0); Mean Corpuscular Hemoglobin 25.9 pg (27.0-33.0); Monocytes Absolute Auto 0.7 X10*3/uL (0.1-1.2); Monocytes Percent Auto 7.2 % (2-11); Neutrophils Absolute Auto 6.1 x10*3/uL (2.0-8.3); Neutrophils Percent Auto 66.6 % (45-73); Platelet Count 222 X10*3/uL (160-400); Red Blood Count 5.48 X10*6/uL (4.20-5.50); Red Cell Distribution Width 14.8 % (11.0-16.0); White Blood Count 9.2 X10*3/uL (4.8-10.8)
[2024-11-25 11:39] LABS: Erythrocyte Sedimentation Rate 16 MM/HR (0-20)
[2024-11-25 11:59] LABS: Alanine Aminotransferase 24 U/L (0-31); Albumin Level 4.4 g/dL (3.5-5.0); Alkaline Phosphatase 96 U/L (39-117); Anion Gap 12 (12-20); Aspartate Amino Transferase 28 U/L (5-31); Bilirubin Total 0.5 mg/dL (0.0-1.0); Blood Urea Nitrogen 10 mg/dL (9-16); C Reactive Protein 2.67 mg/dL (< or = 0.50); Calcium 9.6 mg/dL (8.4-10.2); Carbon Dioxide 27 mmol/L (22-29); Chloride 108 mmol/L (96-108); Estimated Glomerular Filt Rate > 60; Glucose Random 74 mg/dL (60-115); Potassium 4.3 mmol/L (3.3-5.1); Sodium 143 mmol/L (135-145); Total Protein 7.4 g/dL (6.5-8.0)
== END 2024-11-25 09:52 | disposition home or self-care (01) ==
LOC: HO.LAB 09:51
PROVIDERS: PCP Internal Medicine; Visit Provider Student in an Organized Health Care Education/Training Program
DX: M13.80 Other specified arthritis, unspecified site (principal)
CPT/HCPCS: 36415; 80053; 85025; 85652; 86140

== ENCOUNTER 2024-12-10 08:48 | Outpatient (AMB) | payer MEDICARE, MEDICAID, SELFPAY ==
--- OUTSIDE RECORDS SUMMARY | 2024-12-10 09:16 | XMS_ITS | Clinical Summary ---
Author Organization [facility] [address] [facility] Address [address] [place] [address] Phone Care Team Providers Care Data Operations Manager Name Role Phone Venus Schaefer MD Primary Care Provider [phone] Allergies Active Allergy Reactions Criticality Noted Date Comments Loratadine-Pseudoephedrine Meperidine 06/03/2024 Hydrocodone-Acetaminophen 06/03/2024 Medications omeprazole OTC (PriLOSEC OTC) 20 mg EC tablet Take 1 tablet (20 mg total) by mouth 1 (one) time each day. Do not crush, chew, or split. Active Active Problems Problem Noted Date Diagnosed Date Migraine syndrome 06/03/2024 Overview (06/03/2024): [facility] Impression essentially similar non contrast head Ct when compared to 08-27-2004 06-02-2016 Vertigo 06/03/2024 Depression 06/03/2024 Rheumatoid arthritis ([facility]/HCC V24, CMS/HCC V28) 06/03/2024 Fibromyalgia 06/03/2024 Alopecia [...] Insurance MEDICARE [place]ICA[place] - [place] Care Teams Data Operations Manager Relationship Specialty Start Date End Date Venus Schaefer MD [address] [place] [address] PCP - General Internal Medicine 05/20/24
--- NOTE | 2024-12-10 09:21 | A.OFFVIS_ITS ---
Vital Signs 12/10/24 09:24 Height 5 ft 1 in Weight 227 lb 15.327 oz BMI 43.1 BP 124/80 Blood Pressure Location Lt brachial Position Sitting Pulse 85 Pulse Source Pulse Oximeter Pulse Oximetry (%) 98 Oxygen Delivery Method Room Air Intake Visit Reasons: RA/FMS Intake Note: Patient presents for RA/FMS follow up. Allergies loratadine (From CLARITIN-D) Allergy (Severe, Verified 12/10/24 09:24) DIFFICULTY BREATHING meperidine (From DEMEROL) Allergy (Severe, Verified 12/10/24 09:24) DIFFICULTY BREATHING pseudoephedrine (From CLARITIN-D) Allergy (Severe, Verified 12/10/24 09:24) DIFFICULTY BREATHING acetaminophen (From VICODIN) Allergy (Unknown, Verified 12/10/24 09:24) UNKNOWN Medication List - Last Reconciled 12/13/24 by Riddhi Pastor MD ascorbic acid-elderberry fruit 100-50 mg (Airborne (elderberry)) tabs PO tyezckx-zufocauuvldnc-jxpcvokj 250-250-65 mg (Excedrin Migraine) 1 tab PO Q4-6H PRN fluocinonide 0.05% 1 appl topical BID-QID PRN magnesium glycinate PO multivitamin 1 tab PO DAILY omeprazole 20 mg PO DAILY riboflavin (vitamin B2) 400 mg PO DAILY HPI Comments Details: 58-year-old female with seronegative arthritis returns for follow-up. She is taking methotrexate 20 mg weekly regularly plus folic acid 1 mg daily. She states that she has been doing about the same overall. She continues to have diffuse body aches. He has to psychotherapist and recently saw a psychiatrist. She started CBT. She does not want to take psychiatry medication. Interval History: Patient last seen 06/[address] Perkins. At that time she was following up for her seronegative RA on methotrexate monotherapy. She was doing well overall but complained of diffuse body aches. Exam did not show any synovitis and her body aches were attributed to FM. Since that visit she self discontinued methotrexate, not noticing any change in symptoms Today, No prolonged AM stiffness or joint swelling Noting diffuse aches and pains Rheumatologic History: Initial history: This is a 57-year-old female who was diagnosed with seronegative arthritis back in 2018. Used to follow-up with Dr. Lyman then followed with Dr. Velez. She took methotrexate consistently for 3 years. She continued to have pain and increase inflammatory markers. Biologics where suggested as well as triple therapy and patient refused. She has not been seen by parts coordinator since 2020. Over the last year patient has been having worsening pain. She has worsening bilateral lower back pain worse on the right side. She has severe pain of her legs. Mostly her knees. She was evaluated by you and then spine not sports for her lower back pain and she had 2 rounds of physical therapy which did not provide much benefit. Current Rheumatology Medication(s): [facility] Medical History Frontal fibrosing alopecia Normal pelvic exam Lumbar radicular pain Colonoscopy refused Mammogram normal Annual physical exam Rheumatoid arthritis PTSD (post-traumatic stress disorder) Depression with anxiety Overweight Chronic vertigo Migraine Surgical History H/O dilation and curettage H/O arthroscopy History of carpal tunnel release No pertinent past surgical history Family History Father Smoker Myocardial infarction Mother HTN (hypertension) History of CVA (cerebrovascular accident) Brother Myocardial infarction Brother No problems noted. Sister No problems noted. Sister No problems noted. Social History Housing: Apartment Alcohol intake: never Patient Tobacco Use Status: Never used Tobacco e-Cigarette/Vaping Use: Never Used service: No Current occupational status: disabled Cognitive needs: No Hearing needs: No Vision needs: Yes Review of Systems Const Details: Review of Systems Constitutional: Denies fever, chills, weight loss ENT: Denies vision changes, eye pain or eye redness, dental caries, dry mouth GI: Denies nausea, vomiting, diarrhea, abdominal pain, change in BM Pulm: Denies SOB, MIN, hemoptysis, wheezing Cards: Denies chest pain, palpitations Skin: Denies Raynaud's, rash, nail changes, photosensitivity, BARREL RAISER: Denies headaches, weakness, paresthesias, recurrent falls MSK: as per HPI All other systems reviewed and are unremarkable except noted above Physical Exam Vital Signs: Last Vital Signs Pulse 85 12/10/24 09:24 BP 124/80 12/10/24 09:24 Pulse Ox 98 12/10/24 09:24 Oxygen Delivery Method Room Air 12/10/24 09:24 BMI result Body Mass Index 43.1 Vital signs reviewed Physical Examination CONSTITUITIONAL Patient alert and cooperative. Well appearing and in no apparent painful distress HEENT Conjunctiva and sclera clear. No lymphadenopathy. CHEST/RESPIRATORY SYSTEM Normal respiratory effort and able to speak in complete sentences. Clear to auscultation bilaterally. No crackles, rales, rhonchi, wheezes heard. CARDIAC SYSTEM Regular rate and rhythm. S1 and S2 heard no murmurs. Radial pulses intact bilaterally MSK Hands * Right Hand: Able to make a fist. No swelling or tenderness to palpation of these joints. * Left Hand: Able to make a fist. No swelling or tenderness to palpation of these joints. Wrists * Right Wrist: Full ROM. 70 degrees of wrist flexion, 80 degrees of wrist extension. No swelling or TTP * Left Wrist: Full ROM. 70 degrees of wrist flexion, 80 degrees of wrist extension. No swelling or TTP Elbows * Right Elbow: Full ROM. No swelling or TTP. No TTP of the medial and lateral epicondyles * Left Elbow: Full ROM. No swelling or TTP. No TTP of the medial and lateral epicondyles Shoulders * Right shoulder: Full ROM. No swelling noted. No TTP of the AC joint, subacromial bursa or posterior shoulder * Left shoulder: Full ROM. No swelling noted. No TTP of the AC joint, subacromial bursa or posterior shoulder Knees * Right knee: Full ROM. No swelling noted. No TTP of the knee joint lie or pes anserine bursa * Left knee: Full ROM. No swelling noted. No TTP of the knee joint lie or pes anserine bursa. * Crepitations felt bilaterally Ankles * Right ankle: Good ankle dorsiflexion and plantar flexion. No swelling. No TTP of the ankle joint * Left ankle: Good ankle dorsiflexion and plantar flexion. No swelling. No TTP of the ankle joint Feet * Right foot: Negative squeeze test * Left foot: Negative squeeze test Tender points? * No tenderness to palpation of the bilateral trapezius, supraspinatus, anterior costochondral junctions, bilateral suboccipital muscle insertions SKIN No rashes Results Reviewed Results Reviewed: Laboratory Tests 06/21/24 11/25/24 10:32 10:04 WBC 9.2 RBC 5.48 Hgb 14.2 Hct 45.5 Plt Count 222 ESR 16 Sodium 143 Potassium 4.3 Chloride 108 Carbon Dioxide 27 BUN 10 Creatinine 0.84 AST 28 ALT 24 Alkaline Phosphatase 96 C-Reactive Protein 2.25 H 2.67 H Total Protein 7.4 Albumin 4.4 Assessment & Plan Assessment & Plan (1) Seronegative arthritis: Comment: -ve RF -ve CCP dx 2017 MTX [id number] (not much improvement per patient) MTX 05/2023 effective Code(s): M13.80 - Other specified arthritis, unspecified site Category: Medical Plan: #Seronegative RA Patient is a 59-year-old female diagnosed with seronegative rheumatoid arthritis based on negative RF and CCP and Joint pain. Has never had much improvement on it methotrexate and so this calls into question whether not she truly had/has a diagnosis of seronegative rheumatoid arthritis. self-discontinued her methotrexate several months ago and today she is without any evidence of synovitis. She does have elevated inflammatory markers but this is unchanged when compared to previous blood work with her being on immunosuppressive. When calculated her CRP based on her BMI is about 2.4 and so her BMI is likely is contributing a lot to her elevated CRP. That being said I think it is reasonable to continue monitor her off DMARDs until we find objective evidence of synovitis that would benefit from immunosuppression. Plan - Monitor off DMARDs - RTC 6 months - Labs before visit: CBC, CMP, ESR, CRP (2) Fibromyalgia, primary: Code(s): M79.7 - Fibromyalgia Category: Medical Plan: #Fibromyalgia Discussed the diagnosis of fibromyalgia Plan - Encouraged lifestyle changes: weightloss, increased exercise and stretching (3) Polyarticular osteoarthritis: Code(s): M15.9 - Polyosteoarthritis, unspecified Plan: #Polyarticular OA Encouraged weight loss and daily exercise Plan I spent 40 minutes reviewing the record and labs, taking a history, examining the patient, discussing the treatment plan, fibromyalgia counselling, ordering diagnostic work up and documenting in the medical record Coding Level of Care Code Est Pt Level 5 (37672) Complex EM visit Add On G2211 Diagnoses Seronegative arthritis M13.80 Fibromyalgia, primary M79.7 Polyarticular osteoarthritis M15.9
[2024-12-10 09:24] VITALS: BP 124/80; PULSE 85; O2SAT 98; BMI 43.1
== END 2024-12-10 10:06 | disposition home or self-care (01) ==
LOC: HO.RHE 08:49
PROVIDERS: PCP Internal Medicine; Visit Provider Student in an Organized Health Care Education/Training Program
DX: M79.7 Fibromyalgia (principal); M15.9 Polyosteoarthritis, unspecified
CPT/HCPCS: 99215; G2211

== ENCOUNTER → 2024-12-10 08:48 | Outpatient (BNVA) | payer MEDICARE, MEDICAID, SELFPAY | PROVIDERS: PCP Internal Medicine; Visit Provider Student in an Organized Health Care Education/Training Program | DX: M13.80 Other specified arthritis, unspecified site (principal); M79.7 Fibromyalgia; M15.9 Polyosteoarthritis, unspecified | CPT/HCPCS: 99212 ==

== ENCOUNTER 2025-06-09 08:17 | Outpatient (REF) | payer MEDICARE, MEDICAID, SELFPAY ==
[2025-06-09 10:04] LABS: MANUAL DIFF FLAG NO
[2025-06-09 10:15] LABS: Hematocrit 45.6 % (37.0-47.0); Hemoglobin 14.1 g/dl (12.0-16.0); Imm Gran Abs Auto 0.03 X10*3/uL (0.00-0.03); Imm Gran Pct Auto 0.3 % (0.0-0.4); Lymphocytes Absolute Auto 2.3 X10*3/uL (1.2-4.9); Mean Corpuscular HGB Conc 30.9 g/dl (31.0-35.0); Mean Corpuscular Hemoglobin 26.4 pg (27.0-33.0); Mean Corpuscular Volume 85.4 fL (80.0-98.0); NRBC Abs Auto 0.000 X10*3/uL (0.0-0.012); NRBC Pct Auto 0.0 /100WBC (0.0-0.2); Platelet Count 241 X10*3/uL (160-400); Red Blood Count 5.34 X10*6/uL (4.20-5.50); White Blood Count 10.3 X10*3/uL (4.8-10.8)
[2025-06-09 10:25] LABS: Alanine Aminotransferase 22 U/L (0-31); Albumin Level 4.4 g/dL (3.5-5.0); Alkaline Phosphatase 94 U/L (39-117); Anion Gap 12 (12-20); Aspartate Amino Transferase 27 U/L (5-31); Blood Urea Nitrogen 10 mg/dL (9-16); Calcium 9.5 mg/dL (8.4-10.2); Carbon Dioxide 26 mmol/L (22-29); Chloride 108 mmol/L (96-108); Estimated Glomerular Filt Rate > 60; Potassium 4.3 mmol/L (3.3-5.1); Sodium 142 mmol/L (135-145); Total Protein 7.3 g/dL (6.5-8.0)
== END 2025-06-09 08:18 | disposition home or self-care (01) ==
LOC: HO.HMGCLDS 08:17
PROVIDERS: PCP Internal Medicine; Visit Provider Student in an Organized Health Care Education/Training Program
DX: Z79.899 Other long term (current) drug therapy (principal)
CPT/HCPCS: 36415; 80053; 85025; 85652; 86140

== ENCOUNTER 2025-06-11 10:12 | Outpatient (AMB) | payer MEDICARE, MEDICAID, SELFPAY ==
--- NOTE | 2025-06-11 10:18 | A.OFFVIS_ITS ---
Vital Signs 06/11/25 10:24 Height 5 ft 1 in Weight 230 lb 13.184 oz BMI 43.6 BP 134/80 Blood Pressure Location Lt brachial Position Sitting Pulse 88 Pulse Source Pulse Oximeter Pulse Oximetry (%) 98 Oxygen Delivery Method Room Air Intake Visit Reasons: follow up Intake Note: Patient presents today for RA/FMS follow up and test results. Chief Nurse Anesthetist Required: No Information Interpreted: non-clinical & clinical Accompanied by: Self / Same As Patient Allergies loratadine (From CLARITIN-D) Allergy (Severe, Verified 06/11/25 10:23) DIFFICULTY BREATHING meperidine (From DEMEROL) Allergy (Severe, Verified 06/11/25 10:23) DIFFICULTY BREATHING pseudoephedrine (From CLARITIN-D) Allergy (Severe, Verified 06/11/25 10:23) DIFFICULTY BREATHING acetaminophen (From VICODIN) Allergy (Unknown, Verified 06/11/25 10:23) UNKNOWN Medication List - Last Reconciled 06/11/25 by Riddhi Pastor MD ascorbic acid-elderberry fruit 100-50 mg (Airborne (elderberry)) tabs PO eslfhmg-slbpvodogdjnt-pidyvvtx 250-250-65 mg (Excedrin Migraine) 1 tab PO Q4-6H PRN fluocinonide 0.05% 1 appl topical BID-QID PRN magnesium glycinate PO multivitamin 1 tab PO DAILY omeprazole 20 mg PO DAILY riboflavin (vitamin B2) 400 mg PO DAILY HPI Comments Details: Patient is a 59-year-old female with GERD, polyarticular OA, PTSD, ?seronegative arthritis, and fibromyalgia returns for follow-up. Interval History: Patient last seen 12/10/2024 with me - Not on DMARDs - No prolonged AM stiffness or joint swelling - Noting diffuse aches and pains Today - Not on DMARDs - presenting for follow-up of presumed rheumatoid arthritis with worsening chronic pain. - She was previously treated with methotrexate for several years for a presumed diagnosis of rheumatoid arthritis, but she reports it provided little benefit and was discontinued. - All blood work for rheumatoid arthritis has been negative. - She has previously refused other treatments, including Humira shots. - The patient reports that her diffuse aches and pains have become much worse recently, and she lives with unbearable chronic pain daily. - She endorses symptoms suggestive of neuropathy, including a burning, throbbing, and pulsating pain in her hands and feet. - This pain significantly impacts her daily functioning, causing difficulty with holding cups, cutting items, and an inability to make a fist. - The patient has a history of degenerative disease in her spine and osteoarthritis in her knees and hands, confirmed by x-rays in 2022. - She has a history of carpal tunnel syndrome and underwent both a carpal tunnel release and a subsequent arthroscopic clean-up surgery on her hand. - She has a nearly 40-year history of headaches and is currently undergoing physical therapy as recommended by her neurologist's PA. - Past medication trials include gabapentin for migraines a long time ago, which she felt was ineffective. - She reports a poor history with prescription medications, citing adverse reactions and lack of efficacy. - She is attempting lifestyle modifications including dietary changes with turmeric, using a small exercise bike, and joining [employer], with minimal weight loss noted. Rheumatologic History: Initial history: This is a 57-year-old female who was diagnosed with seronegative arthritis back in 2017. Used to follow-up with Dr. Lyman then followed with Dr. Velez. She took methotrexate consistently for 3 years. She continued to have pain and increase inflammatory markers. Biologics where suggested as well as triple therapy and patient refused. She has not been seen by payroll coordinator since 2020. Over the last year patient has been having worsening pain. She has worsening bilateral lower back pain worse on the right side. She has severe pain of her legs. Mostly her knees. She was evaluated by you and then spine not sports for her lower back pain and she had 2 rounds of physical therapy which did not provide much benefit. Methotrexate [id number] (not much improvement per patient) MTX 05/2023 - 11/2024 self discontinued, again no improvement in joint pain Trialled - Gabapentin: not helpful Current Rheumatology Medication(s): [facility] Medical History Frontal fibrosing alopecia Normal pelvic exam Lumbar radicular pain Colonoscopy refused Mammogram normal Annual physical exam Rheumatoid arthritis PTSD (post-traumatic stress disorder) Depression with anxiety Overweight Chronic vertigo Migraine Surgical History H/O dilation and curettage H/O arthroscopy History of carpal tunnel release No pertinent past surgical history Family History Father Smoker Myocardial infarction Mother HTN (hypertension) History of CVA (cerebrovascular accident) Brother Myocardial infarction Brother No problems noted. Sister No problems noted. Sister No problems noted. Social History Housing: Apartment Alcohol intake: never Patient Tobacco Use Status: Never used Tobacco e-Cigarette/Vaping Use: Never Used service: No Current occupational status: disabled Cognitive needs: No Hearing needs: No Vision needs: Yes Review of Systems Narrative Review of Systems Constitutional: Denies fever, chills, weight loss ENT: Denies vision changes, eye pain or eye redness, dental caries, dry mouth GI: Denies nausea, vomiting, diarrhea, abdominal pain, change in BM Pulm: Denies SOB, MIN, hemoptysis, wheezing Cards: Denies chest pain, palpitations Skin: Denies Raynaud's, rash, nail changes, photosensitivity, DESIGN INSERTER: Denies weakness, recurrent falls MSK: as per HPI All other systems reviewed and are unremarkable except noted above Physical Exam Exam Exam: Vital signs reviewed Physical Examination CONSTITUITIONAL Patient alert and cooperative. Well appearing and in no apparent painful distress MSK Hands * Right Hand: Not able to make a fist. No swelling or tenderness to palpation of the PIPs or DIPs. Mild TTP of the MCPs (described as soreness) * Left Hand: Not able to make a fist. No swelling or tenderness to palpation of the PIPs or DIPs. No deformities noted. TTP of the 4th MCP Wrists * Right Wrist: Full ROM to flexion and extension. No swelling or TTP * Left Wrist: Full ROM to flexion and extension. No swelling or TTP Elbows * Right Elbow: Full ROM. No swelling or TTP. No TTP of the medial epicondyle. No TTP of the lateral epicondyle * Left Elbow: Full ROM. No swelling or TTP. No TTP of the medial epicondyle. No TTP of the lateral epicondyle Shoulders * Right shoulder: No swelling noted. No TTP of the AC joint. No TTP of the subacromial bursa. No TTP of the posterior shoulder * Left shoulder: No swelling noted. No TTP of the AC joint. No TTP of the subacromial bursa. No TTP of the posterior shoulder ' Knees * Right knee: No swelling noted. TTP of the knee joint line. No TTP of pes anserine bursa * Left knee: Full ROM. No swelling noted. TTP of the knee joint line. No TTP of pes anserine bursa. Ankles * Right ankle: Good ankle dorsiflexion and plantar flexion. No swelling. No TTP of the ankle joint * Left ankle: Good ankle dorsiflexion and plantar flexion. No swelling. No TTP of the ankle joint Feet * Right foot: Negative squeeze test * Left foot: Negative squeeze test Tender points? * No tenderness to palpation of the bilateral trapezius, supraspinatus, anterior costochondral junctions, bilateral suboccipital muscle insertions * TTP bilateral greater trochanteric bursa SKIN No rashes Vital Signs: Last Vital Signs Pulse 88 06/11/25 10:24 BP 134/80 06/11/25 10:24 Pulse Ox 98 06/11/25 10:24 Oxygen Delivery Method Room Air 06/11/25 10:24 BMI result Body Mass Index 43.6 Results Reviewed Results Reviewed: Laboratory Tests 11/25/24 06/09/25 10:04 08:21 WBC 10.3 RBC 5.34 Hgb 14.1 Hct 45.6 Plt Count 241 ESR 16 32 H Sodium 142 Potassium 4.3 Chloride 108 Carbon Dioxide 26 BUN 10 Creatinine 0.83 AST 27 ALT 22 C-Reactive Protein 2.67 H 2.18 H Assessment & Plan Assessment & Plan (1) Fibromyalgia, primary: Code(s): M79.7 - Fibromyalgia Category: Medical Plan: #Fibromyalgia Patient is a 59-year-old female presenting for evaluation of chronic widespread pain The patient's clinical presentation of worsening diffuse, chronic pain is highly consistent with fibromyalgia, which is believed to be her primary underlying condition. A new treatment approach will be initiated to manage her symptoms. She will start Celebrex 100 mg twice daily for pain. In addition, she will restart gabapentin at a low dose of 100 mg nightly, primarily targeting neuropathic pain symptoms, with the potential to increase the dose over time. The patient also reports burning and throbbing pain in her hands and feet, which is suspicious for peripheral neuropathy. To further investigate this, an EMG of both upper and lower extremities will be ordered to identify any treatable pathology. The initiation of low-dose gabapentin is also intended to address these neuropathic symptoms. Plan - Celebrex 100mg bid - Gabapentin 100mg nightly - Check EMG bilateral upper and lower extremities - RTC 4 moths (2) Seronegative arthritis: Comment: -ve RF -ve CCP dx 2018 MTX [id number] (not much improvement per patient) MTX 05/2023 effective Code(s): M13.80 - Other specified arthritis, unspecified site Category: Medical Plan: #Seronegative RA Patient is a 59-year-old female diagnosed with seronegative rheumatoid arthritis based on negative RF and CCP and Joint pain. Has never had much improvement on it methotrexate and so this calls into question whether not she truly had/has a diagnosis of seronegative rheumatoid arthritis. self-discontinued her methotrexate several months ago and today she is without any evidence of synovitis. She does have elevated inflammatory markers but this is unchanged when compared to previous blood work with her being on immunosuppressive. When calculated her CRP based on her BMI is about 2.4 and so her BMI is likely is contributing a lot to her elevated CRP. A diagnosis of an inflammatory arthritis like rheumatoid arthritis is considered less likely given the persistently negative blood work and lack of response to a prior trial of methotrexate. Although her inflammatory markers are elevated, this is non-specific and has not changed with immunosuppressive therapy. No further workup or treatment for rheumatoid arthritis is planned at this time. Plan - Monitor off DMARDs - RTC 4 months - Labs before visit: CBC, CMP, ESR, CRP (3) Polyarticular osteoarthritis: Code(s): M15.9 - Polyosteoarthritis, unspecified Plan: #Polyarticular OA The patient has known osteoarthritis in her hands, knees, and spine, confirmed by prior imaging, which contributes to her mechanical pain. The prescribed Celebrex 100 mg twice daily is intended to also manage the pain associated with her osteoarthritis. The patient is encouraged to continue with lifestyle modifications such as weight loss and exercise. Plan I discussed with the patient my assessment that her symptoms are most consistent with fibromyalgia, a condition of heightened pain sensitivity, compounded by osteoarthritis. I explained that an inflammatory arthritis like rheumatoid arthritis is less likely given her negative lab work and lack of response to methotrexate. We discussed that while there is no cure for her chronic pain, we can try new medications to help manage her symptoms. I recommended starting two new medications: Celebrex 100 mg twice a day for pain and low-dose gabapentin 100 mg at night for her neuropathic symptoms. We reviewed the potential side effects, including GI upset from Celebrex (which is hopefully mitigated by her omeprazole use) and drowsiness or dizziness from gabapentin. I also recommended she undergo an EMG of her upper and lower extremities to investigate for a treatable nerve condition, which she agreed to despite a prior negative experience with the test. We will follow up in four months to re-evaluate her response to this new regimen. I spent 40 minutes reviewing the record and labs, taking a history, examining the patient, discussing the treatment plan, fibromyalgia counselling, explaining the different types of arthritis, ordering diagnostic work up and documenting in the medical record Orders: Orders NE nerve conduction velocity Today G56.93 - Unspecified mononeuropathy of bilateral upper limbs, G57.93 - Unspecified mononeuropathy of bilateral lower limbs NE electromyogram (EMG) Today G56.93 - Unspecified mononeuropathy of bilateral upper limbs, G57.93 - Unspecified mononeuropathy of bilateral lower limbs Medications: New gabapentin 100 mg PO BEDTIME 90 caps 1RF M79.7 - Fibromyalgia celecoxib (Celebrex) 100 mg PO BID 180 caps 1RF M15.9 - Polyosteoarthritis, unspecified Coding Level of Care Code Est Pt Level 5 (14714) Add On Problem Visit Only Diagnoses Fibromyalgia, primary M79.7 Seronegative arthritis M13.80 Polyarticular osteoarthritis M15.9
[2025-06-11 10:24] VITALS: BP 134/80; PULSE 88; O2SAT 98; BMI 43.6
--- OUTSIDE RECORDS SUMMARY | 2025-06-11 12:33 | XMS_ITS | Clinical Summary ---
Author Organization [facility] [address] [facility] Address [address] [place] [address] Phone Care Team Providers Care Outsole Compressor Name Role Phone Venus Schaefer MD Primary Care Provider [phone] Allergies Active Allergy Reactions Criticality Noted Date Comments Loratadine-Pseudoephedrine Meperidine 06/03/2024 Hydrocodone-Acetaminophen 06/03/2024 Medications omeprazole OTC (PriLOSEC OTC) 20 mg EC tablet Take 1 tablet (20 mg total) by mouth 1 (one) time each day. Do not crush, chew, or split. Active Active Problems Problem Noted Date Diagnosed Date Migraine syndrome 06/03/2024 Overview (06/03/2024): [facility] Impression essentially similar non contrast head Ct when compared to 08-27-2004 06-02-2016 Vertigo 06/03/2024 Depression 06/03/2024 Rheumatoid arthritis 06/03/2024 Fibromyalgia 06/03/2024 Alopecia 06/03/2024 Surgical History Surgery Date Site/Laterality Comments CARPAL TUNNEL RELEASE Bilateral D&C FIRST TRIMESTER / TX INC OMPLETE / MISSED / SEPTIC / INDUCED Medical History Medical History Date Comments GERD (gastroesophageal reflux disease) Anxiety Arthritis Depression Family History Medical History Relation Name Comments Diabetes Brother 1 Yonathan Stephen, Heart attack Brother 2 Silas Stephen Heart attack Father Yonathan Stephen, Stroke Mother Page Stephen Relation Name Status Comments Brother 1 Yonathan Stephen, Brother 2 Silas Stephen Father Yonathan Stephen, Mother Page Stephen Social History Tobacco Use [...] on file Sexual Orientation Not on file Last Filed Vital Signs Vital Sign Reading [...] Last Done Comments Breast Cancer Screening 1965 Colorectal Cancer Screening: Colonoscopy 1965 DTaP,Tdap,and Td Vaccines (1 - Tdap) 1984 Hepatitis B Vaccines (1 of 3 - 19+ 3-dose series) 1984 Cervical Cancer Screening: P ap Smear 1986 RSV Immunization Adult Patients (1 - Risk 50-74 years 1-dose series) 09/25/2015 Zoster Vaccines (1 of 2) 09/25/2015 Pneumococcal Vaccine: 50+ Years (2 of 2 - PCV20 or PCV21) 05/02/2019 05/02/2018 HIV Screening 05/29/2022 Hepatitis C Screening 05/29/2022 Medicare Annual Wellness Visit 05/29/2022 Social Influencers of Health Screening 05/29/2022 Depression Screening 06/26/2024 COVID-19 Vaccine (3 - 2024-2 6 season) 2025 07/04/2021, 10/30/2020 Influenza Vaccine (#1) 2025 HIB Vaccines Aged Out No longer eligi [...] Insurance MEDICARE MEDICAID - [place] Care Teams Outsole Compressor Relationship Specialty Start Date End Date Venus Schaefer MD [address] [place] [address] PCP - General Internal Medicine 05/20/24
--- OUTSIDE RECORDS SUMMARY | 2025-06-11 12:33 | XMS_ITS | Clinical Summary ---
Author Organization [facility] Address [address] [place] [id number] Phone Care Team Providers Care Rotary Machine Operator Name Role Phone Venus Schaefer MD Primary Care Provider [phone] Allergies Active Allergy Reactions Criticality Noted Date Comments Atropine-Demerol Dizziness,Lightheade dness 05/07/2021 Loratadine-Pseudoephed rine Palpitations,Shortne ss Of Breath,Throat Tightness High 05/07/2021 Other reaction(s): Irregular Heart Rate Meperidine Anaphylaxis,Hives High 02/09/2017 Other reaction(s): drug allergy Hydrocodone-Acetaminop hen Palpitations,Shortne ss Of Breath High 05/07/2021 Medications methotrexate 2.5 MG Oral tablet TAKE 8 TABLETS BY MOUTH EVERY WEEKS (4 TABLETS AT EACH DOSE, FULL DOSE TAKEN WITHIN 24HR) 0 Active folic acid (FOLVITE) 1 MG tablet Take 1,000 mcg by mouth daily. 0 Active eletriptan (RELPAX) 40 MG tablet Take 1 tablet (40 mg total) by mouth as needed. may repeat in 2 hours if necessary 9 tablet 11 0 Active Additional Information Patient not taking.Reported on 05/07/2021 ibuprofen (ADVIL,MOTRIN) 600 MG tablet Take 1 tablet (600 mg total) by mouth every 8 (eight) hours as needed for pain (specific location in comments) (headache). 90 tablet 3 0 Active Immunizations Immunization Administration Dates Next Due COVID-19 (Pre-04/17) Pfizer Vaccine, mRNA, PF Social History Tobacco Use Types Packs/Day Years Used Date Smoking Tobacco: Never Assessed Education Answer Date Recorded Are you interested in more education? Not on kasia e 10/21/2022 Are you concerned about learning? Not on file 10/21/2022 No 10/21/2022 No 10/21/2022 Digital Access Answer Date Recorded No 11/19/2022 No 11/19/2022 Reliable internet access at home? Not on file 11/19/2022 Device with a working camera? Not on file Comments No Sex and Gender Information Value Date Recorded Sex Assigned at Female 05/20/2020 3:28 PM EST Legal Sex Female 3:08 PM EST Gender Identity Female 05/20/2020 3:28 PM EST Sexual Orientation Straight 05/20/2020 3: 28 PM EST Last Filed Vital Signs Vital Sign Reading Time Taken Comments Blood Pressure - - Pulse - - Temperature - - Respiratory Rate - - Oxygen Saturation - - Inhaled Oxygen Concentration - - Weight 90.7 kg (200 lb) 05/07/2021 1:21 PM EST Height 152.4 cm (5') 05/07/2021 1:21 PM EST Body Mass Index 39.06 05/07/2021 1:21 PM EST Plan of Treatment Health Maintenance Due Date Last Done Comments Adult Td,Tdap Booster 1965 SMOKING Hx and SMOKELESS TOBACCO SCREENING 1978 HIV ONE-TIME SCREENING (18-6 5 YEARS) 09/25/1983 ZOSTER VACCINES (1 of 2) 1984 PAP SMEAR 1986 MAMMOGRAM 2005 COLOGUARD 2010 COLONOSCOPY 2010 COLORECTAL CANCER SCREENING 2010 FIT TEST 2010 FOBT 2010 SIGMOIDOSCOPY 2010 VIRTUAL COLONOSCOPY 2010 RSV VACCINE (1 - Risk 50-74 years 1-dose series) 09/25/2015 PNEUMOCOCCAL VACCINES (50+ years) (2 of 2 - PPSV23, PCV20, or PCV21) 06/27/2018 05/02/2018 COVID-19 VACCINE (2 - Pfizer risk series) 11/20/2020 10/30/2020 DEPRESSION SCREENING 12/10/2021 12/10/2020 INFLUENZA VACCINE (#1) 2025 05/26/2015 LIPID PANEL 10/14/2025 10/14/2020, 10/14/2020 HEPATITIS C SCREENING Completed 10/14/2020 HEPATITIS A VACCINES Aged Out No long er eligible based on patient's age to complete this topic HIB VACCINES Aged Out No longer eligi ble based on patient's age to complete this topic MENINGOCOCCAL VACCINES (ACWY) Aged Out No longer eligible based on patient's age to complete this topic MENINGOCOCCAL VACCINES (B) Aged Out N o longer eligible based on patient's age to complete this topic Medical Devices Not on file Insurance MEDICARE PART A & B [facility] MEDICARE PART A & B [place] [facility] [place]) [address] [address] MEDICARE PART A & B [facility] [place] B [facility] A & B [address] [place], [place] [address]HEALTH Care Teams Rotary Machine Operator Relationship Specialty Start Date End Date Venus Schaefer MD [facility] [place] [address] PCP - General Internal Medicine 05/20/20 Additional Source Comments The information contained in this document represents components of the legal health record. It is not the complete legal health record.[facility]
--- OUTSIDE RECORDS SUMMARY | 2025-06-11 12:33 | XMS_ITS | Data Portability ---
Author Organization [place] [facility],, KARY MOON MD Address [address] [address] Assessment No assessment recorded. Plan of Treatment Reminders Order Date Submit Date Provider Last Modified By Organization Details Last Modified Time Details Appointments None recorded. Lab None recorded. Referral None recorded. Procedures None recorded. Surgeries None recorded. Imaging MAMMO, screening, digital, bilateral - baseline mammo, patient is anxious [address] [place] [address] ([facility]), [address] [place] [address], [address], 6 07:20:34 Medication Orders None recorded. Patient TargetsNo targets recorded. Patient Instructions Encounter Date Encounter Id Patient Instructions Last Modified By Organization Details Last Modified Time 08/07/2015 [id number] abnormal uterine bleeding: care instructions Not available [...] a mylex emb in the office, if possible. She would like to give this some though, she had excruciating pain with the sono hysterogram and so is leery of having more pelvic pain from a procedure. We discussed that she could have a D and C at the hospital, but likely we can do this quickly in the office and that would be preferable, we can medicate her prior, orally. She will get back to us next week with her decision. All questions answered. Face to face discussion 45 minutes bryan Not available 08/07/2015 11:49:35 08/17/2015 [id number] She is here to discuss her recent [...] a mylex emb in the office, if possible. She would like to give this some though, she had excruciating pain with the sono hysterogram and so is leery of having more pelvic pain from a procedure. We discussed that she could have a D and C at the hospital, but likely we can do this quickly in the office and that would be preferable, we can [...] hysteroscopy. Face to face discussion 25 minutes Not available 08/17/2015 10:09:25 09/01/2015 [id number] She is here for pre operative discussion, for her upcoming D and C with hysteroscopy. She had a sonohysterogram at Dr. Barbosa's office that showed an 11 mm endometrial polyp and she is haivng episodes of menorrhagia. LMP was 07/27/15, menses have been regular so she is overdue. She uses condoms for control, but has not been sexually active since before [place]. __ Note from last visit: Discussion Notes [...] a mylex emb in the office, if possible. She would like to give this some though, she had excruciating pain with the sono hysterogram and so is leery of having more pelvic pain from a procedure. We discussed that she could have a D and C at the hospital, but likely we can do this quickly in the office and that would be preferable, we can medicate her prior, orally. She will get back to us next week with her decision. After long discussion today she declines emb with oral percocet, she feels she was, traumatised, by her sonohysterogram and could not tolerate a vagina lprocedure while awake. Risks of surgery, and costs, discussed, she is aware but elects hysteroscopy with D fallon Vu. She has not had bleeding for [...] appointment for D and C with hysteroscopy. She has never had a mammogram and cancelled the one we set up for her, she wants to deal wiht one medical issue at a time, she does agree to go in a few months for that. She is here for discussion of her upcoming scheduled surgical procedure. We discussed the risks of surgery, including , stroke, DVT/PE, hemorrhage, infection, and injury to bowel/bladder or pelvic organs. We discussed the possibility that surgery may not resolve the problems that she is experiencing. We discussed the potential risks of anesthesia. All questions were answered. Consent for surgery was explained and signed. She appears ready for the proposed surgery. An RX for narcotics was not given. Not available 09/01/2015 08:46:13 09/16/2015 [id number] She is here for the post op visit after D and C with hysteroscopy. The tissue was all benign, she feels well, I feel awesome! . There was visualized a 1 cm endometrial [...] [facility] : IMANI QUAN N /#[phone] [id number] [facility] provi ded by [facility] Not Available [facility], Cytopathology Service [address] [place], [address], 09/08/2015 18:04:39 08/07/19 16 07/15/2015 imagi ng/courtney cruz tic resul t No observ ation record ed. [email or web address] Not Available 2015 09:11:24 Result Notes None recorded. Problems Name Problem SNOMED Code Status Onset Date Resolution Date Notes Provider Name and Address Organization Details Recorded Time Dysfunctional uterine bleeding Active Kary Moon MD [address], [place], [address], [facility], 6 08:50:47 Morbid obesity 403080882 Active Kary Moon MD [address], [place], [address], [facility], 6 08:50:47 Polyp of corpus uteri 19778855 Active Kary Moon MD [address], [place], [address], [facility] - [facility] in [facility], 6 08:51:37 Problem Notes None recorded. Procedures Surgical History Date Name Laterality Status Provider Name and Address Organization Details Recorded Time 04/26/2013 Other completed Rosie Hein [place] - [facility], 08/07/2015 08:30:04 Imaging Results None recorded. Procedure Notes None recorded. Medical Equipment None Reported. Allergies Allergen ID Allergen Name Allergen Category Reaction Reaction Severity Criticality Documentation Date Start Date Code Code System Note Provider Name and Address Organization Details Recorded Time 03334 acetamino phen / hydrocodo ne medicatio n nausea Not available Not available 08/07/2015 18529 2 RxNorm Rosie Meczywor null, [place] - [facility], 6 08:30:04 06320 Demerol medicatio n anaphylax is Not available Not available 08/07/2015 54060 1 RxNorm Rosie Meczywor null, [place] - [facility], 6 08:30:04 11008 Claritin- D medicatio n irregular heart rate Not available Not available 08/07/2015 Rosie Meczywor null, [place] - [facility], 6 08:30:04 33838 tranexami c acid medicatio n myalgias (muscle pain) Not available Not available 08/07/2015 99778 RxNorm blur visio n , migra ine , confu ssion Rosie Meczywor null, [place] - [facility], 6 08:30:04 Medications Name Sig Start [...] Body weight Heart rate Body height Systolic And Diastolic Provider Name and Address Organization Details Last Updated DateTime 08/07/2015 41.5 kg/m2 72696.88 4452 g 81 /min 154.94 cm 124/63 mm[Hg] Rosie Angel Luis [place] - [place] in [facility], 08/07/2015 08:30:04 Date Recorded Body height Heart rate Body mass index (BMI) Body weight Systolic And Diastolic Provider Name and Address Organization Details Last Updated DateTime 08/17/2015 154.94 cm 88 /min 41.4 kg/m2 75520.72 903 g 140/64 mm[Hg] Nicole Haynes [facility], 08/17/2015 09:22:36 Date Recorded Heart rate Body mass index (BMI) Body height Body weight Systolic And Diastolic Provider Name and Address Organization Details Last Updated DateTime 09/01/2015 94 /min 41.5 kg/m2 154.94 cm 76229.88 4452 g 132/70 mm[Hg] Nicole Vigil [place] - [facility], 09/01/2015 08:29:59 Date Recorded Body height Body mass index (BMI) Body weight Heart rate Systolic And Diastolic Provider Name and Address Organization Details Last Updated DateTime 09/16/2015 154.94 cm 41.7 kg/m2 630913.1 35782 g 89 /min 122/51 mm[Hg] Rosie Angel Luis LUNDY - [facility], 09/16/2015 08:25:44 Social History Question Answer Notes LastModified by [employer] Details LastModified Time Tobacco Smoking Status Never Smoker Not Available [facility] 04/28/2020 03:19:42 What Is Your Level Of Caffeine Consumption? Moderate [id number] Information not available 04/28/2020 What Type Of Diet Are You Following? REGULAR [id number] Information not available 04/28/2020 Which Illicit Or Recreational Drugs Have You Used? No [id number] Information not available 04/28/2020 Do You Reside In Or Have You Traveled To An Area Where Ebola Virus Transmission Is Active? No [id number] Information not available 04/28/2020 Education 4 Year College Information not available 08/07/2015 Marital Status Domestic Partner Lived With Boyfriend 21 Yrs. Information not available 08/07/2015 Are You Sexually Active? Yes [id number] Information not available 04/28/2020 How Much Tobacco Do You Smoke? No [id number] Information not available 04/28/2020 General Stress Level High Information not available 08/07/2015 How Many Years Have You Smoked Tobacco? 0 [id number] Information not available 04/28/2020 Sex: Unknown Functional Status Question Answer Note LastModified by [employer] Details LastModified Time What is your level of alcohol consumption? 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 Occasional [id number] Information not available 04/28/2020 Mental Status None [...] TST-PPD intradermal 5 completed [place] in [facility], 08/07/2015 08:30:04 Influenza, split virus, trivalent, preservative 5 completed [place] in [facility], 08/07/2015 08:30:04 tetanus toxoid, unspecified formulation 4 completed [place] in [facility], 08/07/2015 08:30:04 Past Encounters Encounter ID Performer Location Encounter Start Date Encounter Closed Date Diagnosis/Indication Diagnosis SNOMED-CT Code Diagnosis ICD10 Code Diagnosis IMO Codes Diagnosis Note [id number] MD KARY Washington MD [address] [facility] [address] [place] [phone] 08/07/2015 08:04:10 08/07/2015 13:12:27 Screening mammography 50022748 Z12.31 Dysfunctio nal uterine bleeding 38261298 N93.8 Morbid obesity 740524033 E66.01 BMI 41 [id number] MD KARY Washington MD [address] [place] [id number] 08/17/2015 09:14:18 08/17/2015 11:42:09 Polyp of corpus uteri 34403781 N84.0 Dysfunctio nal uterine bleeding 08385403 N93.8 [id number] MD KARY Washington MD [address] [place] [id number] 09/01/2015 08:20:16 09/01/2015 13:38:45 Polyp of corpus uteri 31820811 N84.0 Dysfunctio nal uterine bleeding 70327443 N93.8 [id number] MD KARY Washington MD [address] [place] [id number] 09/16/2015 08:19:50 09/16/2015 11:36:46 Polyp of corpus uteri 76849472 N84.0 Health Concerns Section Related Observation LastModified by Organization Detai ls LastModified Time None Recorded Concern Status LastModified by Organization Details LastModified Time None Recorded Advance Directives Directive None Recorded Payers Insurance Date Sequence Insurance Name Policy Number Policy Sanders Covered Member ID Sanders Member ID Guarantor Name 09/13/2015 1 [facility] PLAN - ADVANTAGE (HMO) [id number] Aidee Stephen [id number] Aidee Stephen Notes Date Note Type Note Provider Name and Address Organization Details Recorded Time 08/07/2015 text/html ROS as noted in the HPI Kary Moon MD [address], [place], [address], [place] - [facility], 08/07/2015 11:52:28 08/17/2015 text/html ROS as noted in the HPI Kary Moon MD [address], [place], [address], [place] [facility], 08/17/2015 11:26:56 09/01/2015 text/html ROS as noted in the HPI Kary Moon MD [address], [place], [address], [place] - [facility], 09/01/2015 09:22:20 09/16/2015 text/html ROS as noted in the HPI Kary Moon MD [address], [place], [address], [place] [facility], 09/16/2015 08:54:19 OBGyn Episode No OBEpisode recorded.
== END 2025-06-11 11:13 | disposition home or self-care (01) ==
LOC: HO.RHES 10:13
PROVIDERS: PCP Internal Medicine; Visit Provider Student in an Organized Health Care Education/Training Program
DX: M79.7 Fibromyalgia (principal); M15.8 Other polyosteoarthritis; M06.09 Rheumatoid arthritis without rheumatoid factor, multiple sites
CPT/HCPCS: 99215; G2211

== ENCOUNTER → 2025-06-11 10:12 | Outpatient (BNVA) | payer MEDICARE, MEDICAID, SELFPAY | PROVIDERS: PCP Internal Medicine; Visit Provider Student in an Organized Health Care Education/Training Program | DX: M79.7 Fibromyalgia (principal); M15.9 Polyosteoarthritis, unspecified | CPT/HCPCS: 99212 ==